=== PATIENT | female | born 1985 | race Two or more races ===

== ENCOUNTER → 2021-11-21 09:10 | Outpatient (CLI) | payer OTHER, SELFPAY ==
[2021-11-21 10:06] LABS: Alanine Aminotransferase 13 U/L (12-78); Albumin Level 3.8 g/dl (3.5-5.0); Albumin/Globulin Ratio 1.4 (1.1-1.8); Alkaline Phosphatase 74 U/L (38-126); Aspartate Amino Transferase 25 U/L (14-36); Bilirubin,Total 0.3 mg/dl (0.2-1.3); Blood Urea Nitrogen 7 mg/dl (7-17); Calcium 8.8 mg/dl (8.4-10.2); Carbon Dioxide 26 mmol/L (22.0-30.0); Chloride 107 mmol/L (98-107); Estimated Glomerular Filt Rate 140 ml/min (>60); GFR (African American) 170 ML/MIN (>60); Globulin 2.7 g/dL (1.3-3.2); Glucose 97 mg/dl (74-100); HCG Qualitative, Serum Negative (Negative); Sodium 138 mmol/L (136-145); Total Protein,Serum 6.5 g/dl (6.3-8.2)
[2021-11-21 10:12] LABS: Basophils % 0.6 % (0.1-2.0); Eosinophils # 0.1 K/mm3 (0.0-0.4); Eosinophils % 0.9 % (0.1-12.0); Hematocrit 43.8 % (37.0-47.0); Lymphocytes # 2.1 K/mm3 (0.7-4.5); Lymphocytes % 43.2 % (10-50); Mean Corpuscular HGB Conc 31.8 g/dL (31.8-35.4); Mean Platelet Volume 7.8 fl (7.4-10.4); Monocytes # 0.3 K/mm3 (0.1-1.0); Monocytes % 5.3 % (1.7-9.3); Neutrophils # 2.5 K/mm3 (1.8-7.8); Platelet Count 421 K/mm3 (142-424); Red Blood Count 4.82 M/mm3 (4.20-5.40); Red Cell Distribution Width 12.7 % (11.5-17.5)
[2021-11-21 10:36] LABS: Thyroid Stimulating Hormone 0.32 uIU/mL (0.465-4.68)
== END ==
PROVIDERS: PCP Pediatrics; Visit Provider Obstetrics & Gynecology
DX: Z01.812 Encounter for preprocedural laboratory examination (principal); Z20.822 Contact with and (suspected) exposure to COVID-19; Z30.09 Encounter for other general counseling and advice on contraception; N92.0 Excessive and frequent menstruation with regular cycle
CPT/HCPCS: 36415; 80053; 84443; 84703; 85025; C9803; U0003; U0005

== ENCOUNTER 2021-11-23 06:06 | Day surgery (SDC) | payer OTHER, SELFPAY ==
[2021-11-17 14:53] VITALS: BMI 23.3
[2021-11-23] VITALS (12 sets, daily range): BP systolic 106–151; BP diastolic 67–95; PULSE 65–77; RESP 16–18; TEMP 36.7–43; O2SAT 98–100
--- NOTE | 2021-11-23 09:11 | EXP.OP.NOTE ---
Date of procedure: 11/23/21 Pre-op Diagnosis:: 1. Menorrhagia 2. Complete family status, desires permanent sterilization 3. Hypothyroidism Post-op Diagnosis:: 1. Menorrhagia 2. Complete family status, desires permanent sterilization 3. Hypothyroidism 4. Stage 1 endometriosis of pelvic peritoneum Procedure performed:: 1. Laparoscopy, bilateral salpingectomy 2. Hysteroscopy, D&C, Novasure endometrial ablation Surgeon:: Aparna rByant DO Director Of Group Counseling Program(s):: N/a Anesthesia: GETA Estimated blood loss (mL): 5 Clinical Note:: Ms Esther Wynn is a 36 yo, P3013, with complaint of heavy, regular periods. Flow lasts about 6-7 days with 3-4 heavy days with passage of clots. She admits she has to wear two overnight pads to be covered. She reports changing the two pads about every 2 hours. She denies associated pain. She has history of abnormal pap smear in 2009 and subsequently had cryotherapy followed by normal pap smears. She is not using any contraception at this time. She is exercising abstinence but desires permanent sterilization. She is complete with childbearing. History of x 3 and an elective in 2010. She admits in April she had unprotected intercourse and took Plan B. She has history of hypothyroidism. Operative findings:: Upon laparoscopic exam, grossly normal appearing liver, stomach and bowel. Gallbladder and appendix not visualized. Grossly normal appearing retroverted uterus, bilateral fallopian tubes and bilateral ovaries. Endometriosis powder burn lesions noted in the posterior cul-de-sac. No intraabdominal adhesions. Upon bimanual exam, retroverted uterus noted. Upon hysteroscopic exam, bilateral tubal ostia easily visualized. Blood clots present within the cavity. No masses or lesions within the cavity. Operative note:: Risks, benefits and alternatives were discussed with the patient. Risks include but are not limited to bleeding, infection, damage to adjacent structures and VTE. Patient voiced understanding and agreed to proceed with surgery. She was wheeled back to the operating room and placed under general anesthesia without difficulty. She was placed in the dorsal lithotomy position and prepped and draped in normal sterile fashion. A straight catheter was used to drain the bladder prior to the start of the procedure. A bimanual exam was performed. A weighted Auvard was placed in the vaginal vault. A single tooth tenaculum was placed on the anterior lip of the cervix. [place] manipulator was inserted into the cervical canal and attached to the tenaculum. Weighted Auvard was removed from the vagina. Attention was then drawn to the abdomen. A 2cm infraumbilical incision was made. Veress needle was tested and inserted intraabdominally without difficulty. Opening pressure of 5mm Hg. Abdomen was then insulflated to 15 mm Hg. Trocar was inserted through infraumbilical incision and laparoscope was inserted. Abdomen was viewed in its entirety. See findings above. Pictures were taken. Left lower quadrant was transilluminated. 5 mm incision was made and 5 mm disposable blunt trocar was inserted into the abdomen under direct laparoscopic visualization. Trocar was removed and sleeve was left in place. Right lower quadrant was transilluminated. A 2 cm incision was made and a 12 mm disposable trocar was inserted into the abdomen under direct laparoscopic visualization. Obturator was removed and sleeve was left in place. Fimbriated end of right fallopian tube was grasped. Harmonic was used to transect the right mesosalpinx and fallopian tube at uterine cornua, leaving right ovary in situ. Same procedure was carried out on the contralateral side. Bilateral fallopian tubes will be sent to pathology for review. Hemostasis was noted. Pelvis was irrigated with clear return of fluids. Pictures were taken. Left lower quadrant trocar was removed under direct laparoscopic visualization. Right lower quadrant trocar was removed under direct
--- NOTE | 2021-11-23 09:54 | PC.NURSE ---
0945-detailed report called to JUAN Noble 0945-pt transported to post op via stretcher w/angelia rails up and left in care of JUAN Noble with bed locked in lowest position, vss, pt stable
--- NOTE | 2021-11-24 08:10 | EXP.ANES.II ---
[facility] Anesthesia Record Part II Anesthesia Record Part II Discharge Time: 09:47 Destination: Surgical Day Care (OP Surgery) PACU nurse assessment reviewed?: Yes Patient Condition:: Good Anesthesia Complications:: None Swallowing reflex intact?: Yes Cyanosis?: No Blood Pressure: 115/80 Pulse Rate: 67 Temperature: 98.3 F Mental Status: Alert & Oriented Pain level:: 0 Nausea and/or vomitting:: None Intake, IV Amount: 0
[2021-11-24 08:11] VITALS: BP 115/80; PULSE 67; TEMP 36.8
--- NOTE | 2021-11-24 10:24 | P.PN_ITS ---
[facility] Medical History History of abnormal cervical Papanicolaou smear (~2009) Hypothyroidism Menorrhagia Request for sterilization Surgical History History of dilatation and curettage (~2010) History of elective Family History Other Family history of hypertension No significant family history Social History Smoking Status: Never smoker alcohol intake: never substance use type: denies use current occupational status: employed Travel in the last 8 weeks: None [facility] Anesthesia Checklist Patient Identification Patient Identification: Arm Band Structural Data Admitted From: Home Planned Operative Procedure/s: hysteroscopy d & C BSO Consent for Planned Operative Procedure(s) Verified: Yes Verified Documents: Surgical Consent and History and Physical NPO Status Verified Time NPO: 00:00 Additional verifications Anesthesia Reactions: No Hx Blood Transfusions: No Blood Transfusion Reaction: No Airway Assessment C-Spine Mobility Assessed: Yes TMJ Mobility Assessed: Yes Dentition: Good Dentition Neurological Assessment Level of Consciousness: Awake, Alert, Appropriate and Follows Commands Hx Seizures: No Numbness or tingling in extremities: No Anesthesia Plan Anesthesia Risk discussed: Yes ASA Class: I Anesthesia Type: General
--- NOTE | 2021-11-24 10:27 | P.PNANES_ITS ---
[facility] Anesthesia Record Part I Anesthesia Record I Intake, IV Amount: 1,000 Estimated blood loss (mL): 0 Urine output (mL): 20 Blood Pressure: 125/83 SaO2: 100 Pulse Rate: 73 Respiratory Rate: 16 Temperature: 98.3 F Patient is:: Drowsy
[2021-11-24 10:30] VITALS: BP 125/83; PULSE 73; RESP 16; TEMP 36.8; O2SAT 100
== END 2021-11-23 10:45 | disposition home or self-care (01) ==
PROVIDERS: PCP Pediatrics; Visit Provider Obstetrics & Gynecology
PROC: (CPT 58661; principal; 2021-11-23 07:30)
DX: N92.0 Excessive and frequent menstruation with regular cycle (principal); Z30.2 Encounter for sterilization; N80.3 Endometriosis of pelvic peritoneum; E03.9 Hypothyroidism, unspecified; Z79.899 Other long term (current) drug therapy
CPT/HCPCS: 58661; 58563; J2405

== ENCOUNTER → 2022-05-01 11:05 | Outpatient (CLI) | payer OTHER, SELFPAY ==
[2022-05-02 09:14] LABS: HIV Screen 4th Generation wRfx Non Reactive (Non Reactive)
[2022-05-02 12:19] LABS: Rapid Plasma Reagin Ab Titer Non Reactive (NonRea<1:1)
[2022-05-07 16:04] LABS: Hep A Ab, IgM NEGATIVE; Hepatitis B Core Antibody IgM NEGATIVE; Hepatitis B Surface Antigen NEGATIVE; Hepatitis C Antibody NON REACTIVE
== END ==
PROVIDERS: PCP Pediatrics; Visit Provider Obstetrics & Gynecology
DX: Z20.2 Contact with and (suspected) exposure to infections with a predominantly sexual mode of transmission (principal); N89.8 Other specified noninflammatory disorders of vagina; Z91.89 Other specified personal risk factors, not elsewhere classified
CPT/HCPCS: 36415; 80074; 86593; 86703; G0432

== ENCOUNTER 2023-03-22 14:26 | Outpatient (CLI) | payer OTHER, SELFPAY ==
[2023-03-22 14:51] LABS: Basophils # 0.1 K/mm3 (0-0.2); Basophils % 1.1 % (0.1-2.0); Eosinophils # 0.1 K/mm3 (0.0-0.4); Eosinophils % 1.3 % (0.1-12.0); Hematocrit 39.8 % (37.0-47.0); Hemoglobin 13.9 g/dL (12.2-16.2); Lymphocytes # 2.8 K/mm3 (0.7-4.5); Lymphocytes % 41.4 % (10-50); Mean Corpuscular HGB Conc 34.8 g/dL (31.8-35.4); Mean Corpuscular Hemoglobin 30.2 pg (27.0-31.2); Mean Corpuscular Volume 86.9 fl (81-99); Mean Platelet Volume 7.9 fl (7.4-10.4); Monocytes # 0.4 K/mm3 (0.1-1.0); Monocytes % 6.3 % (1.7-9.3); Neutrophils # 3.3 K/mm3 (1.8-7.8); Neutrophils % 49.8 % (37.0-80.0); Platelet Count 291 K/mm3 (142-424); Red Blood Count 4.58 M/mm3 (4.20-5.40); Red Cell Distribution Width 13.4 % (11.5-17.5); White Blood Count 6.7 K/mm3 (4.8-10.8)
[2023-03-22 15:23] LABS: Chloride 101 mmol/L (98-107); Potassium 4.1 mmoL/L (3.5-5.1); Sodium 137 mmol/L (136-145)
[2023-03-22 15:25] LABS: Blood Urea Nitrogen 7 mg/dl (7-17); Estimated Glomerular Filt Rate 94 ml/min (>60); GFR (African American) 114 ML/MIN (>60)
[2023-03-22 15:26] LABS: Alanine Aminotransferase 49 U/L (12-78); Albumin Level 4.1 g/dl (3.5-5.0); Albumin/Globulin Ratio 1.3 (1.1-1.8); Alkaline Phosphatase 93 U/L (38-126); Anion Gap 13.1 mEq/L (5-15); Aspartate Amino Transferase 36 U/L (14-36); Bilirubin,Total 0.6 mg/dl (0.2-1.3); Calcium 8.6 mg/dl (8.4-10.2); Carbon Dioxide 27 mmol/L (22.0-30.0); Globulin 3.1 g/dL (1.3-3.2); Glucose 93 mg/dl (74-100); Total Protein,Serum 7.2 g/dl (6.3-8.2)
[2023-03-22 15:43] LABS: HCG,Quantitative < 2 mIU/ml (0-5.42)
== END 2023-03-22 23:59 ==
LOC: LAB 14:27
PROVIDERS: PCP Pediatrics; Visit Provider Obstetrics & Gynecology
DX: Z01.812 Encounter for preprocedural laboratory examination (principal); N93.9 Abnormal uterine and vaginal bleeding, unspecified; R10.2 Pelvic and perineal pain; Z80.49 Family history of malignant neoplasm of other genital organs
CPT/HCPCS: 36415; 80053; 84702; 85025

== ENCOUNTER 2023-03-28 06:55 | Observation (INO) | payer OTHER, SELFPAY ==
--- NOTE | 2023-03-26 14:44 | SUR.PREOP ---
Clarified with Dr. Jackson's office staff Pippa who spoke with directly, that consent is correct for Total Laparoscopic hysterectomy with bilateral Oopherectomy, possible total abdominal hysterectomy, possible cystoscopy is correct procedure on consent.
[2023-03-27 13:11] VITALS: BMI 25.7
[2023-03-28] VITALS (24 sets, daily range): BP systolic 69–138; BP diastolic 58–86; PULSE 64–92; RESP 16–18; TEMP 36.4–43; O2SAT 92–100; BMI 25.8
[2023-03-28] MEDS: LACTATED RINGERS 1000ML 1,000 ML 25 ML IV (06:48)
[2023-03-28] MEDS: GABAPENTIN 300MG CAPSULE 600 MG PO (06:49)
[2023-03-28] MEDS: ACETAMINOPHEN 500MG TAB 1000 MG PO ×3 (06:49→21:58)
[2023-03-28] MEDS: CEFAZOLIN SODIUM 1 GM in 0.9 % SODIUM CHLORIDE 50 ML IV ×3 (07:23→21:57)
--- NOTE | 2023-03-28 07:28 | EXP.HP ---
History of Present Illness *Admission Date: 03/28/23 *Reason for visit:: Scheduled surgery *History of present illness: Ms Esther Wynn is a very pleasant 38 yo P3013 who presents to [facility] for scheduled surgery. She complains of abnormal uterine bleeding. History of tubal ligation and hysteroscopy, D&C, endometrial ablation 12/13/21. 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 In May 2022 periods were light, monthly. But she started having pain with intercourse that could last up to 1 week after intercourse and heavy bleeding after intercourse. She was scheduled for hysterectomy but her mother was diagnosed with endometrial cancer. 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 Then in October she started a new job and could not take off work. 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 She admits pain with intercourse is gone but she is still having a monthly period plus irregular spotting every month and bleeding after intercourse. She has a constant, daily ache and pressure in her pelvis which she tolerates but some days it is more painful than others. She requests definitive management with hysterectomy, bilateral oophorectomy. History of x 3. [facility] Disclaimer: The information contained in this section may have been updated after the patient was seen, as this information can be updated by other users. Medical History (Updated 03/28/23 @ 07:33 by Aprana Bryant DO) Abnormal uterine bleeding Chronic pelvic pain in female Dyspareunia in female Family history of malignant neoplasm of endometrium History of abnormal cervical Papanicolaou smear (~2009) Hypothyroidism Surgical History History of dilatation and curettage (~2010) History of elective History of endometrial ablation History of salpingectomy Family History (Updated 03/28/23 @ 06:44 by Ping Santiago RN) Other Diabetes Family history of hypertension Fibromyalgia Uterine cancer Social History (Updated 03/28/23 @ 06:45 by Ping Santiago RN) Smoking Status: Never smoker alcohol intake: never substance use type: denies use current occupational status: employed Travel in the last 8 weeks: None Review of Systems Review of Systems Review of systems:: pertinent systems reviewed and negative unless documented below *Genitourinary Genitourinary: Reports abnormal vaginal bleeding and Reports pelvic pain Meds Home Medications and Allergies Home Medications Medication Instructions Recorded Confirmed Type levothyroxine 75 mcg tablet 75 mcg PO DAILY 02/02/23 03/28/23 History ergocalciferol (vitamin D2) 1,250 1,250 mcg PO WEEKLY 03/22/23 03/28/23 History mcg (50,000 unit) capsule escitalopram oxalate 20 mg tablet 10 mg PO DAILY 03/22/23 03/28/23 History (Lexapro) New Prescriptions to Start Prescriptions: Allergies Allergy/AdvReac Type Severity Reaction Status Date / Time naproxen Allergy Mild Verified 03/28/23 06:26 Exam Data for Last 24 hours Vital signs and Labs for Last 24 Hours: Temp Pulse Resp BP Pulse Ox O2 Del Method 98.3 F 92 H 18 127/83 97 Room Air 03/28/23 06:29 03/28/23 06:29 03/28/23 06:29 03/28/23 06:29 03/28/23 06:29 03/28/23 06:29 I & O for Last 24 hours: Intake & Output 03/25/23 03/26/23 03/27/23 03/28/23 23:59 23:59 23:59 23:59 Weight 155 lb Constitutional Constitutional: no acute distress and cooperative *Routine HEENT Exam Head: Present normocephalic and atraumatic Eye: Absent conjunctivae pink ENT: Present mucous membranes moist *Routine Neck Exam Neck: Present full ROM *Routine Respiratory Exam Respiratory: Present CTA bilaterally and normal respiratory effort *Routine Cardiovascular Exam Cardiovascular: Present RRR *Routine Abdominal Exam Abdominal: Present soft; Absent tenderness or distended *Routine Rectal Exam Rectal:: deferred *Routine Genitalia Exam Genitalia:: deferred *Routine Extremities Exam Extremities: Present full ROM; Absent edema or calf tenderness *Routine Neurological Exam Neurological: Present alert, oriented X3 and moving all extremities Routine Psychiatric Exam Psychiatric: Present normal affect and cooperative Assessment and Plan *Assessment and plan (1) Chronic pelvic pain in female: Status: Acute Category: Medical Code(s): R10.2 - Pelvic and perineal pain; G89.29 - Other chronic pain (2) Abnormal uterine bleeding: Status: Acute Category: Medical Code(s): N93.9 - Abnormal uterine and vaginal bleeding, unspecified (3) Hypothyroidism: Status: Chronic Qualifiers: Hypothyroidism type: unspecified Qualified Code(s): E03.9 - Hypothyroidism, unspecified Category: Medical Code(s): E03.9 - Hypothyroidism, unspecified (4) History of endometrial ablation: Status: Acute Category: Surgical Code(s): Z98.890 - Other specified postprocedural states (5) History of salpingectomy: Status: Acute Category: Surgical Code(s): Z90.79 - Acquired absence of other genital organ(s) (6) Family history of malignant neoplasm of endometrium: Problem Comment: mother Status: Acute Category: Medical Code(s): Z80.49 - Family history of malignant neoplasm of other genital organs (7) Adjustment disorder with emotional disturbance: Status: Acute Category: Medical Code(s): F43.29 - Adjustment disorder with other symptoms Plan Admit to [facility] for scheduled surgery Reviewed risks, benefits, alternatives, expectations and possible complications of surgery. Risks include but are not limited to bleeding; infection; damage to adjacent structures (bowel, bladder, nerves, blood vessels, etc) (possibly requiring further intervention and/or longer hospital stay); VTE; risks with anesthesia; and risk of . All questions addressed and answered. Patient voiced understanding of risks and possible complications. Patient desires to proceed with surgery. Consent form signed. Proceed with scheduled TLH, bilateral oophorectomy, possible NAZARIO, possible cystoscopy
--- NOTE | 2023-03-28 07:42 | EXP.ANES.CKL ---
[facility] Disclaimer: The information contained in this section may have been updated after the patient was seen, as this information can be updated by other users. Medical History (Updated 03/28/23 @ 07:33 by Aparna Bryant DO) Abnormal uterine bleeding Chronic pelvic pain in female Dyspareunia in female Family history of malignant neoplasm of endometrium History of abnormal cervical Papanicolaou smear (~2009) Hypothyroidism Surgical History History of dilatation and curettage (~2010) History of elective History of endometrial ablation History of salpingectomy Family History (Updated 03/28/23 @ 06:44 by Ping Santiago RN) Other Diabetes Family history of hypertension Fibromyalgia Uterine cancer Social History (Updated 03/28/23 @ 06:45 by Ping Santiago RN) Smoking Status: Never smoker alcohol intake: never substance use type: denies use current occupational status: employed Travel in the last 8 weeks: None [facility] Anesthesia Checklist Patient Identification Patient Identification: Arm Band Structural Data Admitted From: Home Planned Operative Procedure/s: Total Laparoscopic Hysterectomy, Bilateral Oopherectomy Consent for Planned Operative Procedure(s) Verified: Yes Verified Documents: Surgical Consent and History and Physical NPO Status Verified Time NPO: 00:00 Additional verifications Anesthesia Reactions: No Hx Blood Transfusions: No Blood Transfusion Reaction: No Airway Assessment Mallampati Score:: Class II C-Spine Mobility Assessed: Yes TMJ Mobility Assessed: Yes Dentition: Good Dentition Neurological Assessment Level of Consciousness: Awake and Alert Anesthesia Plan Anesthesia Risk discussed: Yes Anesthesia Plan: Verified ASA Class: II Anesthesia Type: General
[2023-03-28] MEDS: BUPIVACAINE 0.5% 30ML VIAL 150 MG (08:02)
[2023-03-28] MEDS: 0.9 % SODIUM CHLORIDE 1000ML 1,000 ML IV (08:04)
--- NOTE | 2023-03-28 08:57 | HMH.PHAINT1 ---
Pharmacy Intervention Comments: MEDICATION RECONCILIATION COMPLETED ON PATIENT USING EXTERNAL FILL HISTORY FROM PHARMACY. -ROB MORALEZ, [place]
--- NOTE | 2023-03-28 09:11 | EXP.ANES.I ---
[facility] Anesthesia Record Part I Anesthesia Record I Intake, IV Amount: 1,000 Hydration: Adequate Estimated blood loss (mL): 100 Urine output (mL): 200 Blood Products used (#): none Blood Pressure: 123/75 SaO2: 92 Pulse Rate: 80 Airway Patency: Patent Respiratory Rate: 16 Temperature: 99.5 F Patient is:: Drowsy and Stable Stable to PACU at:: 09:10
--- NOTE | 2023-03-28 09:23 | EXP.OP.NOTE ---
Date of procedure: 03/28/23 Pre-op Diagnosis:: 1. Chronic pelvic pain 2. Abnormal uterine bleeding 3. History of bilateral salpingectomy 4. History of endometrial ablation 5. Family history of endometrial cancer 6. Hypothyroidism Post-op Diagnosis:: 1. Chronic pelvic pain 2. Abnormal uterine bleeding 3. History of bilateral salpingectomy 4. History of endometrial ablation 5. Family history of endometrial cancer 6. Hypothyroidism 7. Intraabdominal adhesion Procedure performed:: 1. Lysis of adhesion between omentum and anterior abdominal wall near umbilicus 2. Total Laparoscopic Hysterectomy, bilateral oophorectomy Surgeon:: Aparna Bryant DO Gear Cutting Machine Set Up Operator(s):: Arun Poole MD CANAL DRIVER:: Maurisio Delgado Anesthesia: GETA Estimated blood loss (mL): 100 Clinical Note:: Ms Esther Wynn is a very pleasant 38 yo P3013 who presents to [facility] for scheduled surgery. She complains of abnormal uterine bleeding. History of tubal ligation and hysteroscopy, D&C, endometrial ablation 12/13/21. 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 In May 2022 periods were light, monthly. But she started having pain with intercourse that could last up to 1 week after intercourse and heavy bleeding after intercourse. She was scheduled for hysterectomy but her mother was diagnosed with endometrial cancer. 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 Then in October she started a new job and could not take off work. 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 She admits pain with intercourse is gone but she is still having a monthly period plus irregular spotting every month and bleeding after intercourse. She has a constant, daily ache and pressure in her pelvis which she tolerates but some days it is more painful than others. She requests definitive management with hysterectomy, bilateral oophorectomy. History of x 3. Operative findings:: 1. On bimanual exam, uterus normal size and shape, midposition. No adnexal masses palpated 2. On laparoscopic exam, small adjesion between omentum and anterior abdominal wall near umbilicus. Grossly normal appearing liver, gallbladder, stomach, bowel and omentum. Grossly normal appearing uterus and bilateral ovaries. No masses or lesions. Operative note:: Discussed risks, benefits, alternatives, expectations and possible complications of surgery. All questions addressed and answered. Patient wished to proceed with surgery. Patient was wheeled back to the operating room and placed under general anesthesia without difficulty. She was placed in the dorsal lithotomy position. She was prepped and draped in normal sterile fashion. Beginning at the vagina, a talley catheter was inserted into the bladder and draining clear urine prior to the start of the procedure. Weighted Auvuard was placed in the vaginal vault. Anterior lip of the cervix was grasped with single tooth tenaculum. Uterus sounded to 8. Contreras dilators were used to dilate the cervix. Advincula uterine manipulator was inserted into the cervix with the colpotomy cup covering the cervix. Single tooth tenaculum was removed prior to complete placement of colpotomy cup over cervix. Uterine balloon was filled with 10cc of air. Vaginal balloon was filled with 60 cc of air. Weighted Auvard was removed. Attention was then turned to the abdomen. Skin just below the umbilicus was injected with 0.5% marcaine. A 1.5 cm infraumbilical incision was made. Veress needle was tested and inserted intrabdominally. Opening pressure was 4 mm Hg. The peritoneal cavity was insulflated to 15 mm Hg. Laparoscope within 11 mm blunt trocar was inserted intrabdominally under direct visualization. Obturator and scope were removed. Laparoscope was inserted into the trocar sleeve. Abdomen and pelvis was viewed in its entirety. Bilateral ureters were identified. Examination of the peritoneal cavity revealed no signs of injury from entry and normal anatomic structures. See findings above. Pictures were taken. Bowel was swept cephalad with blunt probe. LLQ port site was transilluminated and injected with 0.5% marcaine. A 1.5 cm incision was made and 11 mm trocar was inserted intraabdominally under direct laparoscopic visualization. Obturator was removed and sleeve was left in place. Same procedure was performed in RLQ. Left ovary was grasped. Ligasure Hook was used to clamp, cauterize and transect the left IP ligament. Left round ligament was clamped, cauterized and transected with Ligassure Hook. Transection was carried through the Broad ligament. Same procedure was carried out on the contralateral side including transecting the right IP ligament then the Round ligament. Care was taken to slowly separate the bladder off of the lower uterine segment with sharp and blunt dissection. Once the bladder was appropriately dissected off of the lower uterine segment. Bilateral uterine arteries were clamped, cauterized and transected using the Ligasure. Transection was carried through the cardinal ligament bilaterally. Hemostasis was noted. At the level of the colpotomy cup, the vaginal vault was incised circumferentially with the Ligasure monopolar hook. The uterus and cervix was pulled into the vagina and left in the vagina to hold pneumoperitoneum. The vaginal vault was closed with the Endostitch V-Lock barbed stitch. Pelvis was irrigated. Intraabdominal pressure was decreased to 5 mm Hg. Hemostasis was noted. Surgicel powderwas applied over bilateral pedicles and closed vaginal vault. RLQ and LLQ trocars were removed under direct laparoscopic visualization. Pneumoperitoneum was released into the atmosphere. Infraumbilical trocar was removed under direct laparoscopic visualization to ensure no herniation of bowel or omentum. Skin incisions were reapproximated with 3-0 Vicryl. Dermabond was applied over closed skin incisions. Attention was turned to the vagina. Specimen was removed from the vagina and handed off of the sterile field. Catheter was removed from the bladder. Patient was awakened from anesthesia and taken to recovery in stable condition. Condition: stable Disposition: floor Specimens:: 1. Uterus and cervix 2. Bilateral ovaries Complications:: None
[2023-03-28] MEDS: ESTRADIOL VALERATE 20 MG/ML VIAL 30 MG IM (09:34)
[2023-03-28] MEDS: MORPHINE 2MG/ML SYRINGE 2 MG IV (09:42)
[2023-03-28] MEDS: LACTATED RINGERS 1000ML 1,000 ML 125 ML IV (10:03)
--- NOTE | 2023-03-28 11:20 | EXP.ANES.II ---
[facility] Anesthesia Record Part II Anesthesia Record Part II Discharge Time: 09:50 Destination: Obstetric PACU nurse assessment reviewed?: Yes Patient Condition:: Good Anesthesia Complications:: None Swallowing reflex intact?: Yes Airway Patency: Patent Cyanosis?: No Blood Pressure: 132/78 SaO2: 98 Respiratory Rate: 16 Pulse Rate: 86 Temperature: 98 F Mental Status: Alert & Oriented Pain level:: 2 Nausea and/or vomitting:: None Intake, IV Amount: 0 Hydration: Adequate
[2023-03-28] MEDS: HYDROMORPHONE 2MG/ML SYRINGE 1 MG IV (12:10)
[2023-03-28] MEDS: KETOROLAC 30MG/ML VIAL 30 MG IV ×2 (15:48→20:37)
--- NOTE | 2023-03-28 17:21 | PC.NURSE ---
SHIFT SUMMERY: NO ACUTE CHANGES SINCE PT ARRIVE TO THE DEPARTMENT. PT HAS C/O MILD CRAMPING PAIN THIS SHIFT. LUNGS REMAIN CLEAR BILATERALLY. BOWEL SOUNDS ARE ACTIVE. PT HAS AMBULATED TO THE BATHROOM AND WAS ABLE TO VOID POST ROTHMAN REMOVAL. LAP SITES ARE C/D/I. SMALL AMOUNT OF VAGINAL BLEEDING. VSS.
--- NOTE | 2023-03-28 19:13 | PC.NURSE ---
Report received from Bossman Davenport RN and Anthony Jefferson RN.
--- NOTE | 2023-03-28 20:00 | PC.NURSE ---
1930 IV fluids d/c. IV status is saline locked. Pt up to use restroom. SCDs removed due to patient ambulating throughout day following surgery per shift report. Pt states she needs no help to go to the restroom or to move about room.
[2023-03-28] MEDS: POLYETHYLENE GLYCOL 3350 17 GM PACKET PO (20:37)
[2023-03-29 00:09] VITALS: BP 106/63; PULSE 65; RESP 16; TEMP 36.7; O2SAT 97
--- NOTE | 2023-03-29 01:04 | PC.NURSE ---
Pt sleeping at this time. Equal bilateral rise and fall of chest with respirations. Family remains at bedside.
[2023-03-29] MEDS: KETOROLAC 30MG/ML VIAL 30 MG IV (03:38)
[2023-03-29] MEDS: ACETAMINOPHEN 500MG TAB 1000 MG PO ×2 (03:38→09:01)
[2023-03-29 03:45] VITALS: BP 101/61; PULSE 68; RESP 16; TEMP 36.6; O2SAT 97
--- NOTE | 2023-03-29 03:46 | PC.NURSE ---
Reassessment completed. Clear lung sounds bilaterally, bowel sounds present in all 4 quadrants. Incision sites are C/D/I. IV site is unremarkable and flushed prior to administration of IV Toradol. Patient is resting but arouses easily when staff comes in room. States she has minimal pain that is mostly present when she is passing gas and is intermittent. Has been able to sleep and get some rest. Scheduled pain medication given. Pt states she has no needs or concerns at this time.
[2023-03-29 05:44] LABS: Alanine Aminotransferase 23 U/L (12-78); Albumin Level 3.1 g/dl (3.5-5.0); Albumin/Globulin Ratio 1.2 (1.1-1.8); Alkaline Phosphatase 67 U/L (38-126); Aspartate Amino Transferase 23 U/L (14-36); Bilirubin,Total 0.5 mg/dl (0.2-1.3); Blood Urea Nitrogen 7 mg/dl (7-17); Calcium 8.1 mg/dl (8.4-10.2); Carbon Dioxide 24 mmol/L (22.0-30.0); Chloride 106 mmol/L (98-107); Creatinine Clearance Estimated 142 mL/min (50-200); Estimated Glomerular Filt Rate 112 ml/min (>60); GFR (African American) 136 ML/MIN (>60); Globulin 2.6 g/dL (1.3-3.2); Glucose 96 mg/dl (74-100); Sodium 133 mmol/L (136-145); Total Protein,Serum 5.7 g/dl (6.3-8.2)
--- NOTE | 2023-03-29 06:34 | PC.NURSE ---
Pt sleeping with family at bedside. Equal and unlabored rise and fall of chest with respirations. No needs noted.
[2023-03-29 08:00] VITALS: BP 106/69; PULSE 72; RESP 18; TEMP 36.8; O2SAT 100
[2023-03-29 08:02] LABS: Basophils # 0.1 K/mm3 (0-0.2); Basophils % 0.7 % (0.1-2.0); Eosinophils % 0.3 % (0.1-12.0); Hematocrit 34.4 % (37.0-47.0); Hemoglobin 11.6 g/dL (12.2-16.2); Lymphocytes % 33.6 % (10-50); Mean Corpuscular HGB Conc 33.8 g/dL (31.8-35.4); Mean Corpuscular Hemoglobin 29.7 pg (27.0-31.2); Mean Corpuscular Volume 87.8 fl (81-99); Mean Platelet Volume 7.8 fl (7.4-10.4); Monocytes # 0.5 K/mm3 (0.1-1.0); Monocytes % 5.6 % (1.7-9.3); Neutrophils # 5.3 K/mm3 (1.8-7.8); Neutrophils % 59.7 % (37.0-80.0); Platelet Count 297 K/mm3 (142-424); Red Blood Count 3.92 M/mm3 (4.20-5.40); Red Cell Distribution Width 13.4 % (11.5-17.5); White Blood Count 8.8 K/mm3 (4.8-10.8)
--- NOTE | 2023-03-29 08:25 | EXP.DC.SUM ---
General Admission date:: 03/28/23 Discharge date: 03/29/23 HPI HPI HPI: POD # 1 s/p TLH, bilateral oophorectomy Feeling well this morning. Pain controlled. Light vaginal spotting with wiping. Voiding without difficulty and passing flatus. Tolerating regular diet. Denies fever/chills, chest pain and shortness of breath. No lightheadedness/dizziness. Ambulating well ad gasper. Hospital Course Hospital Course Hospital Course: Ms Esther Wynn is a very pleasant 38 yo [id number] who presents to [facility] for scheduled surgery. She complains of abnormal uterine bleeding. History of tubal ligation and hysteroscopy, D&C, endometrial ablation 12/13/21. 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 In May 2022 periods were light, monthly. But she started having pain with intercourse that could last up to 1 week after intercourse and heavy bleeding after intercourse. She was scheduled for hysterectomy but her mother was diagnosed with endometrial cancer. 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 Then in October she started a new job and could not take off work. She is following with an rural carrier associate at and her thyroid studies are good. She admits pain with intercourse is gone but she is still having a monthly period plus irregular spotting every month and bleeding after intercourse. She has a constant, daily ache and pressure in her pelvis which she tolerates but some days it is more painful than others. She requests definitive management with hysterectomy, bilateral oophorectomy. History of x 3. She underwent total laparoscopic hysterectomy with bilateral oophorectomy on 03/28/23. She did well postoperatively. Pain controlled. Light vaginal spotting with wiping. Voiding without difficulty and passing flatus. Tolerating regular diet. Denies fever/chills, chest pain and shortness of breath. No lightheadedness/dizziness. Vital signs stable, afebrile. Heart regular rate and rhythm. Lungs clear to auscultation. Abdomen soft, appropriate tenderness to palpation, BS normal. Ambulating well ad gasper. Normal hospital course. She was discharged home on POD # 1 with instructions to follow-up in the office in 2 weeks or sooner if needed. Exam Data for Last 24 hours Vital signs and Labs for Last 24 Hours: Temp Pulse Resp BP Pulse Ox O2 Del Method O2 Flow Rate 97.9 F 68 16 101/61 L 97 Room Air 4 03/29/23 03:45 03/29/23 03:45 03/29/23 03:45 03/29/23 03:45 03/29/23 03:45 03/29/23 06:30 03/28/23 09:30 Laboratory Results - last 24 hr 03/29/23 05:15: Sodium 133 L, Potassium 4.0, Chloride 106, Carbon Dioxide 24, Anion Gap 7.0, BUN 7, Creatinine 0.60, Estimated Creat Clear 142, Estimated GFR 112, Est GFR ( Amer) 136, Glucose 96, Calcium 8.1 L, Total Bilirubin 0.5, AST 23, ALT 23, Alkaline Phosphatase 67, Total Protein 5.7 L, Albumin 3.1 L, Globulin 2.6, Albumin/Globulin Ratio 1.2 03/29/23 06:50: WBC 8.8, RBC 3.92 L, Hgb 11.6 L, Hct 34.4 L, MCV 87.8, MCH 29.7, MCHC 33.8, RDW 13.4, Plt Count 297, MPV 7.8, Neut % (Auto) 59.7, Lymph % (Auto) 33.6, [place] % (Auto) 5.6, Eos % (Auto) 0.3, Baso % (Auto) 0.7, Neut # (Auto) 5.3, Lymph # (Auto) 3.0, [place] # (Auto) 0.5, Eos # (Auto) 0.0, Baso # (Auto) 0.1 I & O for Last 24 hours: Intake & Output 03/26/23 03/27/23 03/28/23 03/29/23 23:59 23:59 23:59 23:59 Intake Total 1000 / 1000 Output Total 550 / 550 Balance 450 / 450 Weight 155 lb 155 lb 0.006 oz Constitutional Constitutional: no acute distress and cooperative *Routine HEENT Exam Head: Present normocephalic and atraumatic Eye: Absent conjunctivae pink ENT: Present mucous membranes moist *Routine Neck Exam Neck: Present full ROM *Routine Respiratory Exam Respiratory: Present CTA bilaterally and normal respiratory effort *Routine Cardiovascular Exam Cardiovascular: Present RRR *Routine Abdominal Exam Abdominal: Present soft and normoactive bowel sounds; Absent tenderness, distended or guarding *Routine Rectal Exam Patient deferred: visual exam *Routine Exam Patient deferred: external exam *Routine Extremities Exam Extremities: Present full ROM; Absent edema or calf tenderness *Routine Neurological Exam Neurological: Present alert, oriented X3 and moving all extremities Routine Psychiatric Exam Psychiatric: Present normal affect and cooperative Results Data Completed and Pending Labs on day of discharge: Labs from last 24 hours 03/29/23 03/29/23 06:50 05:15 WBC 8.8 RBC 3.92 L Hgb 11.6 L Hct 34.4 L MCV 87.8 MCH 29.7 MCHC 33.8 RDW 13.4 Plt Count 297 MPV 7.8 Neut % (Auto) 59.7 Lymph % (Auto) 33.6 [place] % (Auto) 5.6 Eos % (Auto) 0.3 Baso % (Auto) 0.7 Neut # (Auto) 5.3 Lymph # (Auto) 3.0 [place] # (Auto) 0.5 Eos # (Auto) 0.0 Baso # (Auto) 0.1 Sodium 133 L Potassium 4.0 Chloride 106 Carbon Dioxide 24 Anion Gap 7.0 BUN 7 Creatinine 0.60 Estimated Creat Clear 142 Estimated GFR 112 Est GFR ( Amer) 136 Glucose 96 Calcium 8.1 L Total Bilirubin 0.5 AST 23 ALT 23 Alkaline Phosphatase 67 Total Protein 5.7 L Albumin 3.1 L Globulin 2.6 Albumin/Globulin Ratio 1.2 DS: Diagnosis Discharge Diagnosis (1) Chronic pelvic pain in female: Status: Acute Code(s): R10.2 - Pelvic and perineal pain; G89.29 - Other chronic pain (2) Abnormal uterine bleeding: Status: Acute Code(s): N93.9 - Abnormal uterine and vaginal bleeding, unspecified (3) Hypothyroidism: Status: Chronic Code(s): E03.9 - Hypothyroidism, unspecified Qualifiers: Hypothyroidism type: unspecified Qualified Code(s): E03.9 - Hypothyroidism, unspecified (4) History of endometrial ablation: Status: Acute Code(s): Z98.890 - Other specified postprocedural states (5) History of salpingectomy: Status: Acute Code(s): Z90.79 - Acquired absence of other genital organ(s) (6) Family history of malignant neoplasm of endometrium: Status: Acute Code(s): Z80.49 - Family history of malignant neoplasm of other genital organs Problem details: mother (7) Adjustment disorder with emotional disturbance: Status: Acute Code(s): F43.29 - Adjustment disorder with other symptoms (8) Acute blood loss anemia: Status: Acute Code(s): D62 - Acute posthemorrhagic anemia Meds Home Medications and Allergies Home Medications Medication Instructions Recorded Confirmed Type levothyroxine 75 mcg tablet 75 mcg PO DAILY Thyroid 02/02/23 03/28/23 History ergocalciferol (vitamin D2) 1,250 1,250 mcg PO WEEKLY Supplement 03/22/23 03/28/23 History mcg (50,000 unit) capsule escitalopram oxalate 20 mg tablet 20 mg PO DAILY Mood 03/22/23 03/28/23 History (Lexapro) ibuprofen 800 mg tablet 800 mg PO Q8H PRN pain #20 tabs 03/29/23 Rx oxycodone 5 mg tablet 5 mg PO Q4HP PRN Moderate Pain 03/29/23 Rx (4-6) #20 tabs polyethylene glycol 3350 17 gram 17 g PO BID PRN constipation #14 ea 03/29/23 Rx oral powder packet (Miralax) New Prescriptions to Start Prescriptions: Aparna Lozada oxycodone Aparna Bryant polyethylene glycol 3350 [Miralax] Aparna Bryant Allergies Allergy/AdvReac Type Severity Reaction Status Date / Time naproxen Allergy Mild Verified 03/28/23 06:26 Discharge Plan Disposition Patient Disposition: Home, Self-Care Condition: Good Follow up Plan Follow up with: Aparna Bryant DO [Staff Physician] - 2 weeks Prescriptions/Medication Reconciliation: New polyethylene glycol 3350 [Miralax] 17 gram Powder In Packet 17 g PO BID PRN (Reason: constipation) Qty: 14 0RF oxycodone 5 mg Tablet 5 mg PO Q4HP PRN (Reason: Moderate Pain (4-6)) Qty: 20 0RF ibuprofen 800 mg tablet 800 mg PO Q8H PRN (Reason: pain) Qty: 20 0RF Continued levothyroxine 75 mcg tablet 75 mcg PO DAILY escitalopram oxalate [Lexapro] 20 mg tablet 20 mg PO DAILY ergocalciferol (vitamin D2) 1,250 mcg (50,000 unit) capsule 1,250 mcg PO WEEKLY Patient Comments: TAKE 1 CAPSULE BY MOUTH EVERY WEEK FOR 12 WEEKS Problem Reconciliation Problems Reviewed?: Yes Patient Discharge Instructions ACTIVITY: Limited activity and No heavy lifting DIET: continue same diet and regular diet Additional Instructions: Discharge instructions following hysterectomy: 1. Take 800 mg Ibuprofen every 8 hours, Tylenol 1000 mg every 6 hours and Oxy 5 mg every 4 hours for the next two days. Then take medication as needed for pain. 2. Take Miralax twice a day for the next 3 days then take as needed to keep regular bowel movements. Avoid constipation 3. Nothing in the vagina for 6 weeks - no intercourse, douching or tampons. No tub baths/hot tubs or swimming pools 4. No lifting anything heavier than 5 pounds for 6 weeks 5. Reasons to go to the ED or call On-Call doctor - fever (greater than 100.4) - chest pain or shortness of breath - lower leg/calf swelling, redness or pain. This could be a sign of a blood clot - heavy vaginal bleeding - vaginal discharge (malodorous and/or purulent) Aparna Bryant DO [facility] [phone] Providers Primary Care Provider: Olivier Fowler Admit Provider: Aparna Bryant Attending Provider: Aparna Bryant
[2023-03-29] MEDS: IBUPROFEN 400 MG TABLET 800 MG PO (09:00)
[2023-03-29] MEDS: POLYETHYLENE GLYCOL 3350 17 GM PACKET PO (09:01)
[2023-03-29] MEDS: CITALOPRAM 40MG TABLET 40 MG PO (09:01)
[2023-03-29] MEDS: LEVOTHYROXINE 75MCG (0.075MG) TAB 75 MCG PO (09:01)
[2023-03-29] MEDS: OXYCODONE 5MG IMMEDIATE RELEASE TABLET 5 MG PO (09:15)
--- NOTE | 2023-03-29 10:20 | PC.NURSE ---
D/C teaching provided. Pt v/u
--- NOTE | 2023-03-29 10:59 | PC.NURSE ---
IV discontinued. Pt tolerated well
== END 2023-03-29 11:10 | disposition home or self-care (01) ==
LOC: OB 06:55
PROVIDERS: Admitting Provider Obstetrics & Gynecology; PCP Pediatrics; Visit Provider Obstetrics & Gynecology
PROC: (CPT 58570; principal; 2023-03-28 07:30)
DX: R10.2 Pelvic and perineal pain (principal); G89.29 Other chronic pain; E03.9 Hypothyroidism, unspecified; F43.29 Adjustment disorder with other symptoms; D62 Acute posthemorrhagic anemia; N93.9 Abnormal uterine and vaginal bleeding, unspecified
CPT/HCPCS: 58570; 36415; 80053; 85025; 96374; G0378; J2405

== ENCOUNTER 2024-08-12 10:52 | Outpatient (CLI) | payer OTHER, SELFPAY ==
--- NOTE | 2024-08-12 11:00 | XR_ITS ---
FINAL REPORT CLINICAL HISTORY: VERTEBROGENIC LBP COMPARISON: None FINDINGS: CERVICAL SPINE Three views of the cervical spine were obtained. There is no fracture present. There is no malalignment. Vertebrae are normal in height. No significant degenerative changes. IMPRESSION: No acute process. THORACIC SPINE Two views of the thoracic spine were obtained. There is no fracture present. There is no malalignment. Vertebrae are normal in height. No significant degenerative changes. IMPRESSION: No acute process. LUMBOSACRAL SPINE Three views of the lumbosacral spine were obtained. There is no fracture present. There is no malalignment. Vertebrae are normal in height. No significant degenerative changes. IMPRESSION: No acute process. Reviewed, Interpreted and Dictated by Zay Bowers MD Transcribed by Evelyne Hayes Authenticated and [facility]
== END 2024-08-12 23:59 | disposition home or self-care (01) ==
LOC: RAD 10:53
PROVIDERS: PCP Nurse Practitioner Family; Visit Provider Nurse Practitioner Family
DX: M54.51 Vertebrogenic low back pain (principal)
CPT/HCPCS: 72082

== ENCOUNTER 2025-03-02 08:03 | Outpatient (CLI) | payer OTHER, SELFPAY ==
--- OUTSIDE RECORDS SUMMARY | 2025-02-26 04:00 | XMS_ITS | Continuity of Care Document ---
Author Organization [facility] Address [address] [place] [address] Phone Care Team Providers Care Roller Stainer Name Role Phone Erasmo MSN, [employer], Duyen Unavailable Unavai lable Allergies, Adverse Reactions, Alerts Substance Reaction Status Criticality naproxen Itching Active No Information Medications Medication Instructions Dosage Effective Dates (start - stop) Status Comments VITAMIN D3 2,000UNIT CAPSULES TAKE 1 CAPSULE BY MOUTH DAILY - Active ESCITALOPRAM 20MG TABLETS TAKE 1 TABLET BY MOUTH EVERY DAY - Active Delestrogen 10 mg/mL intramuscular oil inject 1 milliliter by intramuscular route every 4 weeks 10 MG - Active levothyroxine 75 mcg tablet take 1 tablet by oral route every day sun-sat - Active Procedures Procedure Date SCREEN DEPRESSION PERFORMED ROUTINE VENIPUNCTURE URINALYSIS, AUTO, W/O SCOPE OFFICE/OUTPATIENT VISIT, EST Results Test Name Date and Time Measure Units Reference Range Abnormal Flag Status Comments Panel Description: Urinalysis, non-automated, w/ o scope Final Urinalysis, non-automat ed, w/o scope 10:02:05 Color: yellow. Clarity: clear. Glucose: negative. Bilirubin: negative. Ketones: negative. Specific [place]: 1.025. Blood: trace. pH: 6.0. Protein: negative. Urobilinogen: normal. Nitrite: negative. Leukocytes: negative. Final Advance Directives Directive Yes / No Effective Date File Name No Information Encounters Encounter Description Practice Location Reason(s) For Visit Diagnoses Date Provider OFFICE/OUTPA TIENT VISIT, EST [facility], [address] [place] [address], [facility], tel:[phone] [facility] routine check up (chief complaint)L abs (chief complaint)P rapare (chief complaint)D epression Screening (chief complaint) Low incomeEncounter for screening for depressionEncounter for screening for diseases of the blood and blood-forming organs and certain disorders involving the immune mechanismLower back painAnxietyMyalgiaPain in right hipContusion of right breast, subsequent encounterBody mass index [BMI] 24.0-24.9, adult 5 [address] [place], [place], [id number] , . tel:[phone] [facility], [address] [place] [address], [facility], tel:[phone] [facility] [place] No Information 5 [address] [place], [place], [id number] , . tel:[phone] [facility], [address] [place] [address], [facility], tel:[phone] [facility] f/u labs and xray (chief complaint) Body mass index [BMI] 23.0-23.9, adultHyperlipidemiaVerte brogenic low back pain 5 [address], [place], [id number] , [place]. tel:[phone] [facility], [address] [place] [address], [facility], tel:[phone] [facility] Back Pain (chief complaint)b ack cont. (chief complaint) PrediabetesVitamin B12 deficiencyVertebrogenic low back painCystitis, unspecified without hematuriaSpontaneous ecchymosesBody mass index [BMI] 23.0-23.9, adult 5 Zimm[address] D[address]en[address] [place], [place], [id number] , [place]. tel:[phone] [facility], [address] [place] [address], [facility], tel:[phone] [facility] [place] b12 injection (chief complaint) Vitamin B12 deficiency 5 [address] D[address], [place], [id number] , [place]. tel: [phone] [facility], [address] [place] [address], [facility], tel:[phone] [facility] [place] b12 injection (chief complaint) Vitamin B12 deficiency 5 [address] D[address] [place], [place], [id number] , . tel: [phone] [facility], [address] [place] [address], [facility], tel:[phone] [facility] [place] lab collection (chief complaint) Body mass index [BMI] 22.0-22.9, adultCystitis, unspecified without hematuriaPrediabetesVita min B12 deficiency 5 [address] Duyen[address] [place], [place], [id number] , . tel: [phone] [facility], [address] [place] [address], [facility], [place] tel:[phone] [facility] [place] No Information 4 [address], [place], [id number] , [place]. tel:[phone] [facility], [address] [place] [address], [facility], tel:[phone] [facility] [place] B12 INJECTION (chief complaint) Vitamin B12 deficiency 4 [address] Duyen[address] [place], [place], [id number] , [place]. tel:[phone] [facility], [address] [place] [address], [facility], [place] tel:[phone] [facility] [place] B12 INJECTION (chief complaint) Vitamin B12 deficiency 4 [address] [place], [place], [address] , [place]. tel:[phone] [facility], [address] [place] [address], [facility], [place] tel:[phone] [facility] [place] LOSS OF VOICE (chief complaint) Acute laryngitisEncounter for screening for COVID-19Other seasonal allergic rhinitisVitamin B12 deficiencyBody mass index [BMI] 25.0-25.9, adult 4 [address] [place], [place], [id number] , [place]. tel: [phone] [facility], [address] [place] [address], [facility], [place] tel:[phone] [facility] [place] b12 injection (chief complaint) Vitamin B12 deficiency 4 [address] [place], [place], [address] , [place]. tel: [phone] [facility], [address] [place] [address], [facility], [place] tel:[phone] [facility] [place] B12 INJECTION (chief complaint) Vitamin B12 deficiency 4 [address] [place], [place], [address] , [place]. tel: [phone] [facility], [address] [place] [address], [facility], [place] tel:[phone] [facility] [place] FOLLOW UP ON LABS (chief complaint) Vitamin B12 deficiencyVitamin D deficiencyHyperlipidemia PrediabetesBody mass index [BMI] 26.0-26.9, adult 4 [address] D[address] [place], [place], [address] , [place]. tel:[phone] [facility], [address] [place] [address], [facility], tel:[phone] [facility] [place] FASTING LABS (chief complaint)d epression screening (chief complaint)F EDMUNDO VACCINE (chief complaint) Encounter for screening for depressionVitamin B12 deficiencyEncounter for immunization 4 [address] Duyen[address] [place], [place], [id number] , [place]. tel: [phone] [facility], [address] [place] [address], [facility], tel:[phone] [facility] [place] BACK PAIN (chief complaint) Vertebrogenic low back pain 4 [address] [place], [place], [id number] , [place]. tel: [phone] [facility], [address] [place] [address], [facility], tel:[phone] [facility] [place] ER Followup (chief complaint) Cystitis, unspecified without hematuriaBody mass index [BMI] 25.0-25.9, adultExtreme poverty 4 Zimm[address] Duyen. [address] [place], [place], [id number] , [place]. tel: [phone] [facility], [address] [place] [address], [facility], [place] tel:[phone] [facility] [place] B12 (chief complaint) Vitamin B12 deficiency Fe 4 [address] [place], [place], [address] , [place]. tel:[phone] [facility], [address] [place] [address], [facility], tel:[phone] [facility] [place] B12 injection #5 of 6. (chief complaint) Vitamin B12 deficiency Feb-0 4 [address] [place], [place], [address] , . tel: [phone] [facility], [address] [place] [address], [facility], tel:[phone] [facility] [place] injection (chief complaint) Vitamin B12 deficiency 0 4 [address]en[address] [place], [place], [address] , . tel: [phone] [facility], [address] [place] [address], [facility], tel:[phone] [facility] f/u medications /anxiety (chief complaint) Vitamin B12 deficiencyBody mass index [BMI] 25.0-25.9, adultAnxiety 4 [address] Duyen[address] [place], [place], [address] , . tel: [phone] [facility], [address] [place] [address], [facility], tel:[phone] [facility] [place] B12 injection (chief complaint) Vitamin B12 deficiency 4 [address] [place], [place], [address] , [place]. tel: [phone] [address], [facility], tel:[phone] [facility] f/u labs (chief complaint) Body mass index [BMI] 25.0-25.9, adultVitamin B12 deficiencyVitamin D deficiencyAnxietyMyalgia Upper respiratory infection NOS 4 Erasmo Geller. [address] [place], [place], [address] , [place]. tel: [phone] [facility], [address] [place] [address], [address], tel:[phone] [facility] Pre Op Physical (chief complaint) Encounter for screening for depressionEncounter for screening examination for other mental health and behavioral disordersAnxietyMyalgiaP ainful respirationEncounter for screening for diseases of the blood and blood-forming organs and certain disorders involving the immune mechanismBody mass index [BMI] 26.0-26.9, adultSleep disorder, unspecified 3 Erasmo Geller[address] [place], [place], [id number] , [place]. tel: [phone] Family History Family Member Type Diagnosis Age At Onset Sister Problem Alive and well Sister Problem fibromyalgia, In sulin resistent, anxiety, depression Paternal grandmother Problem (finding) Daughter Problem Alive and well Maternal grandmother Problem Hypertension Maternal grandfather Problem (finding) Sister Problem fibromyalgia, Mother Problem fibromyalgia, total hysterec ho Son Problem Alive and well Father Problem Hypertension Paternal grandfather Problem (finding) Father Problem Alive and well Mother Problem Alive and well Daughter Problem Alive and well Sister Problem Hypertension Sister Problem Alive and well Immunizations Vaccine Date Status Comments Influenza virus vaccine, trivalent (IIV3), split virus, preservative free, 0.5 mL dosage, for intramuscular use administered Source: Jasmin rosen Immunization Record Influenza Quad Inj administered Source: [facility] Registry COVID-19 mRNA (PFR) administered Source: Other Registry COVID-19 mRNA (PFR) administered Source: Other Registry Payers Payer name Insurance type Covered republican ID Authoriza tion(s) Hch- Medicaid [employer] CI [id number] Hch- Medicaid [employer] are Wrap Pay [id number] Hch- Medicaid [employer] CI [id number] Hch- Medicaid [employer] are W[employer] Pay [id number] Social History Type Description Quantity Date Captured Comments Alcohol Use Details beer 1 beer socially Caffeine Use Details soda 24 oz per day Tobacco Use Status Current non-smoker Smoking Status Never smoker Non-Smoking Tobacco Use Details : No Details Available : No Details Available Sex Female Sexual Orientation Straight or heterosexual Gender Identity Female Vital Signs Date / Time: Height Weight BMI Pulse Rate Blood Pressure Temperature Respiratory Rate Body Surface Area Head Circumference Head Circ. Percentile Wt./Cruz. Percentile BMI percentile Pulse Ox Inhaled Ox 9:49 AM 65.00 in 66.678 kg (147.00 lbs) 24.4 6 kg/m eter (2) 86 /min 129/76 mm[Hg] 98.10 F 18 /min 99 % Chief Complaint And Reason For Visit From encounter dated '02/26/2025 09:00'. routine check up (chief complaint). Description: Edenilson is a 39 yo [place] female here todayfor a routine check up and continued pain in lower back as well as rt hip pain.UA- today in office had trace blood.STD screening-self swab performed. Last pap- after hysterectomy this year.denies dysuriadenies feeling down/depressed.Edenilson states she has had right breast pain and itching around the nipple for a few months now. No nipple inversion, nor has she palpated any lumps. She is worried about breast cancer- mother had uterine cancer. Edenilson does take estrogren injections monthly. Mansioes not smoke, nor has a family memebter w/ breast cancer. She would like to have a diagnostic US of rt breast to r/o cancer.Noemi has also requested to have std testing through our lab via [facility].She reports that she believes she has fibromyalgia, as her arms, and legs both hurt and worsewhen touched, dull aches all over back, rt hip, arms and neck.this past week she reports having 2 episodes of feeling hot and sweaty, and lightheaded. She does have hypothyroid ism, and TPO antibodies were elevated in July. She is followed by Endocrinology and will f/u with hem in a few weeks. Will get flu vaccine at her follow up appointment. Pt refused to get it today due to having several otherappointments today and didn't want to take a chance of feeling bad. Labs (chief complaint). Description: Pt is here today to have labs collected. 1x attempt in right ac with butterfly needle. Successfully collected 5 tubes, pt tolerated well, gauze and coban applied,pt instructed to remove in 5-10 minutes, pt voiced understanding. Pt is scheduled to rtc in 2 weeksto follow up on lab results. Prapare (chief complaint). Description: Prapare completed 02/26/25. -AW,CM Depression Screening (chief complaint). Description: Depression screening completed 02/26/25. Pt scored 0, provider aware. -AW,PATITO Plan Of Treatment Date Type Action Status Goal Lifestyle education regardin g diet completed Goal Lipid panel. Due on 026 due Goal Vitamin D. Due on due Goal Follow up Plan f or abnormal BMI (Less than 18.5, greater than 25). Due on due Goal HIV screen due Goal HPV. Due on due Goal HPV testing. Due on 027 due Goal PAP. Due on due Goal Pap/HPV testing. Due on due Goal Depression scree kalyani. Due on due Goal Hepatitis C Screening due Goal Vitamin B12. Due on 026 due Goal Unhealthy drug use screening due Goal Influenza vaccine. Due on due Goal TSH. Due on due Goal Tobacco Use Scre ening. Due on due Goal Obtain Height, W eight, and BMI. Due on due Goal Diabetes screening. Due on due Goal Drug Abuse Scree kalyani Test (DAST-10). Due on due Goal CBC. Due on due Goal Tobacco screening. Due on due Goal CMP. Due on due Goal Generalized Anxi ety Disorder - 7 (STEPHEN-7). Due on due Goal Lifestyle education regardin g diet completed Goal Generalized Anxi ety Disorder - 7 (STEPHEN-7). Due on due Goal Unhealthy drug use screening due Goal Drug Abuse Scree kalyani Test (DAST-10). Due on due Goal Vitamin D. Due on due Goal CMP. Due on due Goal HIV screen due Goal Pap/HPV testing. Due on due Goal HPV. Due on due Goal PAP. Due on due Goal Follow up Plan f or abnormal BMI (Less than 18.5, greater than 25). Due on due Goal Influenza vaccine. Due on Oc due Goal Tobacco screening. Due on due Goal Depression scree kalyani. Due on due Goal CBC. Due on due Goal HPV testing. Due on due Goal Tobacco Use Scre ening. Due on due Goal Vitamin B12. Due on due Goal TSH. Due on due Goal Obtain Height, W eight, and BMI. Due on due Goal Diabetes screening. Due on M due Goal Hepatitis C Screening due Goal Lipid panel. Due on due Goal Lifestyle education regardin g diet completed Goal Depression scree kalyani. Due on due Goal Drug Abuse Scree kalyani Test (DAST-10). Due on due Goal Tobacco Use Scre ening. Due on due Goal Lipid panel. Due on due Goal Vitamin D. Due on due Goal Hepatitis C Screening due Goal HIV screen due Goal Generalized Anxi ety Disorder - 7 (STEPHEN-7). Due on due Goal Unhealthy drug use screening due Goal CMP. Due on due Goal HPV testing. Due on due Goal HPV. Due on due Goal PAP. Due on due Goal Vitamin B12. Due on due Goal CBC. Due on due Goal Diabetes screening. Due on due Goal Pap/HPV testing. Due on due Goal Obtain Height, W eight, and BMI. Due on due Goal Influenza vaccine. Due on due Goal Follow up Plan f or abnormal BMI (Less than 18.5, greater than 25). Due on due Goal TSH. Due on due Goal Tobacco screening. Due on due Goal Hepatitis C Screening due Goal HPV testing. Due on 027 due Goal Vitamin D. Due on due Goal CBC. Due on due Goal CMP. Due on due Goal Depression scree kalyani. Due on due Goal Pap/HPV testing. Due on due Goal Influenza vaccine. Due on due Goal Diabetes screening. Due on due Goal TSH. Due on due Goal Vitamin B12. Due on 025 due Goal Follow up Plan f or abnormal BMI (Less than 18.5, greater than 25). Due on due Goal Obtain Height, W eight, and BMI. Due on due Goal PAP. Due on due Goal HPV. Due on due Goal Tobacco Use Scre ening. Due on due Goal Generalized Anxi ety Disorder - 7 (STEPHEN-7). Due on due Goal Drug Abuse Scree kaylani Test (DAST-10). Due on due Goal HIV screen due Goal Lipid panel. Due on 026 due Goal Unhealthy drug use screening due Goal Vitamin D. Due on due Goal Lipid panel. Due on 026 due Goal Influenza vaccine. Due on due Goal Generalized Anxi ety Disorder - 7 (STEPHEN-7). Due on due Goal CMP. Due on due Goal TSH. Due on due Goal HPV. Due on due Goal HPV testing. Due on due Goal Diabetes screening. Due on due Goal Drug Abuse Scree kalyani Test (DAST-10). Due on due Goal Pap/HPV testing. Due on due Goal Unhealthy drug use screening due Goal Tobacco Use Scre ening. Due on due Goal Obtain Height, W eight, and BMI. Due on due Goal Depression scree kalyani. Due on due Goal Vitamin B12. Due on due Goal PAP. Due on due Goal Follow up Plan f or abnormal BMI (Less than 18.5, greater than 25). Due on due Goal CBC. Due on due Goal HIV screen due Goal Hepatitis C Screening due Goal Lifestyle education regardin g diet completed Goal Depression scree kalyani. Due on due Goal Vitamin B12. Due on due Goal Hepatitis C Screening due Goal CMP. Due on due Goal PAP. Due on due Goal Lipid panel. Due on 026 due Goal Influenza vaccine. Due on due Goal Unhealthy drug use screening due Goal Pap/HPV testing. Due on due Goal Vitamin D. Due on due Goal Generalized Anxi ety Disorder - 7 (STEPHEN-7). Due on due Goal CBC. Due on due Goal HPV. Due on due Goal Follow up Plan f or abnormal BMI (Less than 18.5, greater than 25). Due on due Goal TSH. Due on due Goal Drug Abuse Scree kalyani Test (DAST-10). Due on due Goal Tobacco Use Scre ening. Due on due Goal HIV screen due Goal Obtain Height, W eight, and BMI. Due on due Goal Diabetes screening. Due on due Goal HPV testing. Due on due Goal Depression scree kalyani. Due on due Goal Diabetes screening. Due on due Goal Pap/HPV testing. Due on due Goal HIV screen due Goal CBC. Due on due Goal PAP. Due on due Goal Unhealthy drug use screening due Goal Obtain Height, W eight, and BMI. Due on due Goal Generalized Anxi ety Disorder - 7 (STEPHEN-7). Due on due Goal HPV testing. Due on 027 due Goal Vitamin B12. Due on 025 due Goal Tobacco Use Scre ening. Due on due Goal CMP. Due on due Goal HPV. Due on due Goal Drug Abuse Scree kalyani Test (DAST-10). Due on due Goal Lipid panel. Due on 026 due Goal TSH. Due on due Goal Follow up Plan f or abnormal BMI (Less than 18.5, greater than 25). Due on due Goal Hepatitis C Screening due Goal Vitamin D. Due on due Goal Influenza vaccine. Due on due Goal Vitamin B12. Due on due Goal Generalized Anxi ety Disorder - 7 (STEPHEN-7). Due on due Goal Pap/HPV testing. Due on due Goal Drug Abuse Scree kalyani Test (DAST-10). Due on due Goal Influenza vaccine. Due on due Goal HPV. Due on due Goal HIV screen due Goal Follow up Plan f or abnormal BMI (Less than 18.5, greater than 25). Due on due Goal CBC. Due on due Goal Unhealthy drug use screening due Goal HPV testing. Due on 027 due Goal Diabetes screening. Due on due Goal CMP. Due on due Goal Lipid panel. Due on 026 due Goal Depression scree kalyani. Due on due Goal Vitamin D. Due on due Goal TSH. Due on due Goal Hepatitis C Screening due Goal PAP. Due on due Goal Tobacco Use Scre ening. Due on due Goal Obtain Height, W eight, and BMI. Due on due Goal Lifestyle education regardin g diet completed Goal Hepatitis C Screening due Goal CBC. Due on due Goal Drug Abuse Scree kalyani Test (DAST-10). Due on due Goal Diabetes screening. Due on due Goal Obtain Height, W eight, and BMI. Due on due Goal Unhealthy drug use screening due Goal Vitamin B12. Due on due Goal HPV. Due on due Goal Depression scree kalyani. Due on due Goal Follow up Plan f or abnormal BMI (Less than 18.5, greater than 25). Due on due Goal Influenza vaccine. Due on due Goal Pap/HPV testing. Due on due Goal PAP. Due on due Goal CMP. Due on due Goal Tobacco Use Cess ation Counseling. Due on due Goal Generalized Anxi ety Disorder - 7 (STEPHEN-7). Due on due Goal TSH. Due on due Goal Tobacco Use Scre ening. Due on due Goal HIV screen due Goal Vitamin D. Due on due Goal HPV testing. Due on due Goal Lipid panel. Due on due Goal Hepatitis C Screening due Goal Follow up Plan f or abnormal BMI (Less than 18.5, greater than 25). Due on due Goal Diabetes screening. Due on due Goal Tobacco Use Cess ation Counseling. Due on due Goal Obtain Height, W eight, and BMI. Due on due Goal HPV testing. Due on due Goal TSH. Due on due Goal Depression scree kalyani. Due on due Goal Generalized Anxi ety Disorder - 7 (STEPHEN-7). Due on due Goal Pap/HPV testing. Due on due Goal Vitamin D. Due on due Goal HIV screen due Goal CBC. Due on due Goal Vitamin B12. Due on due Goal Tobacco Use Scre ening. Due on due Goal Unhealthy drug use screening due Goal HPV. Due on due Goal Influenza vaccine. Due on due Goal CMP. Due on due Goal Lipid panel. Due on due Goal Drug Abuse Scree kalyani Test (DAST-10). Due on due Goal PAP. Due on due Goal Vitamin D. Due on due Goal HIV screen due Goal Hepatitis C Screening due Goal Unhealthy drug use screening due Goal Follow up Plan f or abnormal BMI (Less than 18.5, greater than 25). Due on due Goal CMP. Due on due Goal Pap/HPV testing. Due on due Goal Diabetes screening. Due on due Goal Lipid panel. Due on due Goal Drug Abuse Scree kalyani Test (DAST-10). Due on due Goal Vitamin B12. Due on due Goal Obtain Height, W eight, and BMI. Due on due Goal Generalized Anxi ety Disorder - 7 (STEPHEN-7). Due on due Goal TSH. Due on due Goal CBC. Due on due Goal Depression scree kalyani. Due on due Goal HPV. Due on due Goal Tobacco Use Scre ening. Due on due Goal Influenza vaccine. Due on due Goal HPV testing. Due on 027 due Goal PAP. Due on due Goal Lifestyle education regardin g diet completed Goal Pap/HPV testing. Due on due Goal Depression scree kalyani. Due on due Goal CMP. Due on due Goal Obtain Height, W eight, and BMI. Due on due Goal Unhealthy drug use screening due Goal HPV. Due on due Goal Drug Abuse Scree kalyani Test (DAST-10). Due on due Goal Follow up Plan f or abnormal BMI (Less than 18.5, greater than 25). Due on due Goal Generalized Anxi ety Disorder - 7 (STEPHEN-7). Due on due Goal HIV screen due Goal Tobacco Use Cess ation Counseling. Due on due Goal Tobacco Use Scre ening. Due on due Goal TSH. Due on due Goal HPV testing. Due on due Goal Hepatitis C Screening due Goal Diabetes screening. Due on due Goal Vitamin B12. Due on 025 due Goal PAP. Due on due Goal Lipid panel. Due on 026 due Goal CBC. Due on due Goal Influenza vaccine. Due on due Goal Vitamin D. Due on due Goal Drug Abuse Scree kalyani Test (DAST-10). Due on due Goal Generalized Anxi ety Disorder - 7 (STEPHEN-7). Due on due Goal CBC. Due on due Goal Pap/HPV testing. Due on due Goal TSH. Due on due Goal Depression scree kalyani. Due on due Goal PAP. Due on due Goal Tobacco Use Cess ation Counseling. Due on due Goal Vitamin D. Due on due Goal HPV. Due on due Goal HPV testing. Due on 027 due Goal Diabetes screening. Due on due Goal Influenza vaccine. Due on due Goal HIV screen due Goal Follow up Plan f or abnormal BMI (Less than 18.5, greater than 25). Due on due Goal Unhealthy drug use screening due Goal Tobacco Use Scre ening. Due on due Goal Obtain Height, W eight, and BMI. Due on due Goal Vitamin B12. Due on 024 due Goal CMP. Due on due Goal Hepatitis C Screening due Goal Drug Abuse Scree kalyani Test (DAST-10). Due on due Goal Depression scree kalyani. Due on due Goal Vitamin D. Due on due Goal Follow up Plan f or abnormal BMI (Less than 18.5, greater than 25). Due on due Goal Influenza vaccine. Due on due Goal HPV. Due on due Goal Obtain Height, W eight, and BMI. Due on due Goal Hepatitis C Screening due Goal CBC. Due on due Goal PAP. Due on due Goal Generalized Anxi ety Disorder - 7 (STEPHEN-7). Due on due Goal CMP. Due on due Goal Pap/HPV testing. Due on due Goal TSH. Due on due Goal HIV screen due Goal Tobacco Use Scre ening. Due on due Goal Vitamin B12. Due on 024 due Goal HPV testing. Due on 027 due Goal Diabetes screening. Due on due Goal Unhealthy drug use screening due Goal Lifestyle education regardin g diet completed Goal Hepatitis C Screening due Goal CBC. Due on due Goal Depression scree kalyani. Due on due Goal Drug Abuse Scree kalyani Test (DAST-10). Due on due Goal Obtain Height, W eight, and BMI. Due on due Goal HIV screen due Goal Diabetes screening. Due on due Goal HPV. Due on due Goal Pap/HPV testing. Due on due Goal HPV testing. Due on due Goal Vitamin D. Due on due Goal Tobacco Use Cess ation Counseling. Due on due Goal TSH. Due on due Goal Follow up Plan f or abnormal BMI (Less than 18.5, greater than 25). Due on due Goal Unhealthy drug use screening due Goal Generalized Anxi ety Disorder - 7 (STEPHEN-7). Due on due Goal Influenza vaccine. Due on due Goal CMP. Due on due Goal PAP. Due on due Goal Vitamin B12. Due on 024 due Goal Tobacco Use Scre ening. Due on due Goal HPV testing. Due on due Goal Obtain Height, W eight, and BMI. Due on due Goal Generalized Anxi ety Disorder - 7 (STEPHEN-7). Due on due Goal CMP. Due on due Goal TSH. Due on due Goal HPV. Due on due Goal HIV screen due Goal Tobacco Use Cess ation Counseling. Due on due Goal Unhealthy drug use screening due Goal Hepatitis C Screening due Goal CBC. Due on due Goal Follow up Plan f or abnormal BMI (Less than 18.5, greater than 25). Due on due Goal Influenza vaccine. Due on due Goal Vitamin D. Due on due Goal Depression scree kalyani. Due on due Goal Vitamin B12. Due on 024 due Goal Tobacco Use Scre ening. Due on due Goal Diabetes screening. Due on due Goal Drug Abuse Scree kalyani Test (DAST-10). Due on due Goal PAP. Due on due Goal Pap/HPV testing. Due on due Goal Drug Abuse Scree kalyani Test (DAST-10). Due on due Goal Follow up Plan f or abnormal BMI (Less than 18.5, greater than 25). Due on due Goal Depression scree kalyani. Due on due Goal Tobacco Use Scre ening. Due on due Goal Vitamin D. Due on due Goal HPV testing. Due on 027 due Goal Diabetes screening. Due on due Goal Obtain Height, W eight, and BMI. Due on due Goal Pap/HPV testing. Due on due Goal CBC. Due on due Goal Vitamin B12. Due on 024 due Goal Unhealthy drug use screening due Goal Hepatitis C Screening due Goal CMP. Due on due Goal Influenza vaccine. Due on Oc due Goal Generalized Anxi ety Disorder - 7 (STEPHEN-7). Due on due Goal TSH. Due on due Goal Tobacco Use Cess ation Counseling. Due on due Goal HPV. Due on due Goal PAP. Due on due Goal HIV screen due Goal Obtain Height, W eight, and BMI. Due on due Goal Generalized Anxi ety Disorder - 7 (STEPHEN-7). Due on due Goal Influenza vaccine. Due on Oc due Goal CMP. Due on due Goal Drug Abuse Scree kalyani Test (DAST-10). Due on due Goal Tobacco Use Scre ening. Due on due Goal Unhealthy drug use screening due Goal Hepatitis C Screening due Goal HPV. Due on due Goal HIV screen due Goal HPV testing. Due on 027 due Goal Follow up Plan f or abnormal BMI (Less than 18.5, greater than 25). Due on due Goal CBC. Due on due Goal Pap/HPV testing. Due on due Goal TSH. Due on due Goal Diabetes screening. Due on due Goal Vitamin B12. Due on due Goal PAP. Due on due Goal Vitamin D. Due on due Goal Depression scree kalyani. Due on due Goal Lifestyle education regardin g diet completed Goal TSH. Due on due Goal Generalized Anxi ety Disorder - 7 (STEPHEN-7). Due on due Goal Hepatitis C Screening due Goal HIV screen due Goal Obtain Height, W eight, and BMI. Due on due Goal CMP. Due on due Goal Influenza vaccine. Due on due Goal Unhealthy drug use screening due Goal Tobacco Use Scre ening. Due on due Goal PAP. Due on due Goal HPV. Due on due Goal CBC. Due on due Goal Depression scree kalyani. Due on due Goal Drug Abuse Scree kalyani Test (DAST-10). Due on due Goal Vitamin D. Due on due Goal Vitamin B12. Due on due Goal Pap/HPV testing. Due on due Goal Diabetes screening. Due on due Goal Follow up Plan f or abnormal BMI (Less than 18.5, greater than 25). Due on due Goal HPV testing. Due on due Goal Tobacco Use Cess ation Counseling. Due on due Goal PAP. Due on due Goal TSH. Due on due Goal Vitamin D. Due on due Goal CMP. Due on due Goal Pap/HPV testing. Due on due Goal Generalized Anxi ety Disorder - 7 (STEPHEN-7). Due on due Goal Tobacco Use Scre ening. Due on due Goal HIV screen due Goal Follow up Plan f or abnormal BMI (Less than 18.5, greater than 25). Due on due Goal Hepatitis C Screening due Goal Depression scree kalyani. Due on due Goal Drug Abuse Scree kalyani Test (DAST-10). Due on due Goal CBC. Due on due Goal Diabetes screening. Due on D due Goal HPV testing. Due on due Goal Vitamin B12. Due on 024 due Goal HPV. Due on due Goal Obtain Height, W eight, and BMI. Due on due Goal Unhealthy drug use screening due Goal Influenza vaccine. Due on due Goal Lifestyle education regardin g diet completed Goal PAP. Due on due Goal TSH. Due on due Goal Vitamin D. Due on due Goal CMP. Due on due Goal Pap/HPV testing. Due on due Goal Generalized Anxi ety Disorder - 7 (STEPHEN-7). Due on due Goal Tobacco Use Scre ening. Due on due Goal HIV screen due Goal Follow up Plan f or abnormal BMI (Less than 18.5, greater than 25). Due on due Goal Hepatitis C Screening due Goal Depression scree kalyani. Due on due Goal Drug Abuse Scree kalyani Test (DAST-10). Due on due Goal CBC. Due on due Goal Diabetes screening. Due on due Goal HPV testing. Due on 027 due Goal Vitamin B12. Due on 024 due Goal HPV. Due on due Goal Obtain Height, W eight, and BMI. Due on due Goal Unhealthy drug use screening due Goal Influenza vaccine. Due on Oc due Goal Lifestyle education regardin g diet completed Referral Ordered: X-RAY EXAM HIP UNI 4/> VIEWS Right hip Appointment date/timeframe: 1 Week ordered Referral Ordered: DX MAMMO INCL CAD UNI R breast Appointment date/timeframe: 1 Week ordered Referral Ordered: X-RAY EXAM ENTIRE SPI 2/3 VW Bilateral spine Appointment date/timeframe: 08/12/2024 ordered Appointment Edenilson Wynn-F/U Lab R esults BOOKED Future Order: Lab Order ABO Grou ping and Rho(D) Typing ([id number]), Collected on: Ordered Future Order: Lab Order Acute He patitis ([id number]), Collected on: Ordered Future Order: Lab Order LINDSAY w/Re flex if Positive ([id number]), Collected on: Ordered Future Order: Lab Order Anemia P rofile B ([id number]), Collected on: Ordered Future Order: Lab Order Comp. Me tabolic Panel (14) ([id number]), Collected on: Ordered Future Order: Lab Order C-Reacti ve Protein, Quant ([id number]), Collected on: Ordered Future Order: Lab Order DHEA-Sul fate ([id number]), Collected on: Ordered Future Order: Lab Order Hemoglob in A1c ([id number]), Collected on: Ordered Future Order: Lab Order HIV 1/0/ 2 Ag/Ab with Reflex ([id number]), Collected on: Ordered Future Order: Lab Order HLA B 27 Disease Association ([id number]), Collected on: Ordered Future Order: Lab Order Insulin ([id number]), Collected on: Ordered Future Order: Lab Order Lipid Pa maine ([id number]), Collected on: Ordered Future Order: Lab Order Lyme, We saldana Blot, Serum ([id number]), Collected on: Ordered Future Order: Lab Order Methylma lonic Acid, Serum ([id number]), Collected on: Ordered Future Order: Lab Order Magnesiu m, Serum ([id number]), Collected on: Ordered Future Order: Lab Order NuSwab V G+, HSV ([id number]), Collected on: Ordered Future Order: Lab Order Progeste darío ([id number]), Collected on: Ordered Future Order: Lab Order PTH, Int act ([id number]), Collected on: Ordered Future Order: Lab Order Rheumato id Arthritis Factor ([id number]), Collected on: Ordered Future Order: Lab Order [facility] Spotted Fever Group Antibodies, IgG, IgM ([id number]), Collected on: Ordered Future Order: Lab Order Sediment ation Rate-Westergren ([id number]), Collected on: Ordered Future Order: Lab Order Thyroid Antibodies ([id number]), Collected on: Ordered Future Order: Lab Order TSH Rfx on Abnormal to Free T4 ([id number]), Collected on: Ordered Future Order: Lab Order Uric Aci d, Serum ([id number]), Collected on: Ordered Future Order: Lab Order Vitamin D, 25-Hydroxy ([id number]), Collected on: Ordered Future Order: Lab Order SARS-COV -2 COVID-19 AMP PRB ([id number]), Collected on: Ordered History Of Present Illness Encounter Date Complaint History Of Prese nt Illness Labs Pt is here today to have labs collected. 1x attempt in right ac with butterfly needle. Successfully collected 5 tubes, pt tolerated well, gauze and coban applied, pt instructed to remove in 5-10 minutes, pt voiced understanding. Pt is scheduled to rtc in 2 weeks to follow up on lab results. routine check up Edenilson is a [age] yo [place] female here today for a routine check up and continued pain in lower back as well as rt hip pain.UA- today in office had trace blood.STD screening-self swab performed. Last pap- after hysterectomy this year.denies dysuriadenies feeling down/depressed.Edenilson states she has had right breast pain and itching around the nipple for a few months now. No nipple inversion, nor has she palpated any lumps. She is worried about breast cancer- mother had uterine cancer. Edenilson does take estrogren injections monthly. She does not smoke, nor has a family memebter w/ breast cancer. She would like to have a diagnostic US of rt breast to r/o cancer.Noemi has also requested to have std testing through our lab via her blood.She reports that she believes she has fibromyalgia, as her arms, and legs both hurt and worse when touched, dull aches all over back, rt hip, arms and neck.this past week she reports having 2 episodes of feeling hot and sweaty, and lightheaded. She does have hypothyroid ism, and TPO antibodies were elevated in July. She is followed by Endocrinology and will f/u with hem in a few weeks. Will get flu vaccine at her follow up appointment. Pt refused to get it today due to having several other appointments today and didn't want to take a chance of feeling bad. Alina Fuller complete d 02/26/25. -PATITO LAKHANI Depression Screening Depression screening completed 02/26/25. Pt scored 0, provider aware. -PATITO LAKHANI f/u labs and xray Edenilson is he re today for f/u on labs and xrays.Overall labs stablecholesterol high, however was non-fasting labs.She went to the ER on 08/14/24 for left shoulder pain, [facility].She thought she was having a heart attackEKG NSR Vent rate 62again cervical xrays were completed: no acute findings, no degenerative change.Lt shoulder 3v : normal study.She would like an MRI- however I explained there is not an indication for this at this time.She states she does feel better, she was given a steroid shot at ER, and symptoms improved.Xrays of complete spine were completed as out patient- days before her ER visit.No acute findings in Cervical, Thoracic, or Lumbar spine.Edenilson also went to Dr. Magallanes for f/u on LLQ pain.Vaginal swab complete- results not yet availableReferred to GI Dr. Dean for evaluation of possible adhesion.RTC 2 weeks b12 injection Back Pain Onset: 2 months ago. The problem is worsening. It occurs persistently. Location of pain is upper back and lower back. Additional information: Pt states that she has a bruise on her upper back that she just discovered 3 days ago and she doesn't know how she got it. Her pain in her lower back has been present for the last 2 months but continues to slowly worsen. back cont. Edenilson states that her back pain is lower back pain, worse with bending, which she does a lot. She states it is more muscular, but her lower back hurts into her hips.She denies accident or injuryworried r/t her mother has lower back diseasewants everything checked.She has requested xrays, MRI.on her thorasic, left upper back she does have a discoloration, possible ecchymosis that began Sunday- no injurylabs collected todayPt was instructed to practice gentle stretching and ice application to lower back daily, ibuprofen for pain as needed, but not for fdc use. b12 injection Edenilson is here today to receive her monthly b12 injection. Administered into left deltoid. Pt tolerated well, bandaide applied. b12 injection Edenilson is hser e today for monthly b12 injection lab collection Here for fasting lab collectionstates has lower back pain, feels like UTI she previously hadDenies dysuria, hematuria, or vaginal dischargeUA oscar send cx B12 INJECTION EDENILSON IS HERE TODAY TO RECEIVE B12 INJECTION #6 OF 6. ADMINISTERED B12 INJECTION INTO LEFT DELTOID. PT TOLERATED WELL, BANDAID APPLIED. PT WILL NOW MOVE FROM WEEKLY INJECTIONS TO MONTHLY INJECTIONS. PT IS SCHEDULED TO RTC IN 1 MONTH. B12 INJECTION EDENILSON IS HERE TODAY TO RECEIVE B12 INJECTION #5 OF 6. ADMINISTERED INTO LEFT DELTOID. PT TOLERATED WELL, BAND AID APPLIED. PT IS SCHEDULED TO RTC IN 1 WEEK FOR B12 INJECTION #6 OF 6. LOSS OF VOICE Pt states that s he lost her voice yesterday. She denies fever, sore throat, or cough. She describes throat as itchy/tickle.Covid test is negative today in clinic. b12 injection # 3 of 6 B12 INJECTION Edenilson is here today for a b12 injection. She has started a 6 week series of b12 injections and this is her second b12 injection today. Administered today in left deltoid, pt tolerated well, band aid applied. Pt is scheduled to rtc in 1 week for injection #3 of 6. FOLLOW UP ON LABS Edenilson is he re today for f/u on labs:A1c 5.7- new prediabetesHLD Total 234LDL 145Trigs 151HDL 62TSH 4.24B12 222- restart 6 weeks series of injection- 1st todayVit D 21.4Diet modification and education provided to ptRTC 3 month for fasting labs RTC 1 week next b12 injectionflu vaccine current FLU VACCINE EDENILSON IS HERE THIS MORNING TO RECEIVE HER ANNUAL INFLUNZA VACCINE. ADMINISTERED AFLURIA 0.5 ML LOT# [id number], EXP 08.16.24, INTO LT DELTOID. PT TOLERATED WELL, BAND AID APPLIED. CONSENT SIGNED AND SCANNED INTO CHART. FASTING LABS EDENILSON IS HERE TODAY TO HAVE FASTING LABS COLLECTED. SUCCESSFULLY COLLECTED 4 TUBES. PT TOLERATED WELL. PT IS SCHEDULED TO RTC IN 2 WEEKS TO FOLLOW UP ON LABS. depression screening Depression screening completed on 12/11/2023. Patient scored 5, provider made aware.- PATITO LAKHANI BACK PAIN Onset: 7 months ago. Severity level is 8. The problem is worsening. It occurs persistently. Location of pain is left flank and left lower side of back.There is no radiation of pain. The client describes the pain as an ache, deep, discomforting, localized and sharp. Context: bending forward and bending over. Symptoms are aggravated by bending and changing positions. Symptoms are relieved by over the counter medication: acetaminophen. Additional information: Pt states that on that the pain was an 11 on a scale of 1-10. When she bends forward she feels like she is not going to be able to stand back up. At times, Tylenol helps to relieve the pain. ER Followup Edenilson is here today for an ER follow up. Pt was seen at [facility] on 24, dx, Strep, and Cystitis. She was treated with 1 gram of Rocephin. She also had a ct of abd, Impression: Urinary Bladder wall thickening, correlate w/ urinalysis for cystitis. Today she reports she continues to have non-productive cough, mild pain w/ urination. She also is taking augmenten that she finished Sunday. UA ok here in office today. B12 EDENILSON IS HERE THIS MORNING TO RECEIVE B12 INJECTION #6 OF 6. ADMINISTERED INTO LEFT DELTOID. PT TOLERATED WELL, BAND AID APPLIED. PT TO NOW MOVE TO MONTHLY B12 INJECTIONS. PT IS SCHEDULED TO RTC IN 1 MONTH. B12 injection #5 of 6. Pt voiced no complaints. injection Patient here for #4 B12 Injection, voices no complaintsNon 340 B Cyanocobalamin 1000 mg given f/u medications/anxiety AnxietyJ ust started the escitalopram and has been taking for about 4 weeks now.anxiety is better-she feels more calm, no more chest heaviness/palpitionsShe reports having more energystill adjusting to medication and recovering from her complete hysterectomy that she had on the of this month.Procedure went well, no complications- d/c on 24She reports she is doing so much better, still mild abdominal tenderness and mild swelling.[place] began to have estrogen injections monthlyRTC 1 week B12 # 4 of 6Repeat TSH at week # 6f/u here on week 7 for anxiety/ TSH results B12 injection Edenilson is here this morning for B12 injection #2 of 6. Administered into left deltoid. Pt tolerated well, band aid applied. f/u labs F/u labs:A1c 5.5 , CBC, CMP, Insulin okneg hivTotal Cholesterol 215, HDL 41, Trigs 142, LDL 147- diet modifications recommended- low fat, less fried- greasy foodsFerritin 32, TIBC, Total iron wnl, Saturation slightly low 13%Vit D low at 7- sending supplement weekly x 12B12 low 334- may start 6 week series of injections, then monthlyShe was also seen in the ER over the weekend for congestionshwendy was given anbx this past Sunday- but stopped taking them, because she felt betterlosing voice, itchy throat, thibodeaux, coughencouraged to keep taking anbx until completeAnxietyJust started the escitalopram on feeling doroteo will continue to take and f/u 2 weeksanxiety is some betterstill adjusting to medicationSHe is due t to have total hysterectomy on the of this monthperiodpoornima ospina sat slightly low Pre Op Physical Edenilson is here today as a new pateint to establish care and for a pre op physical for a hysterectomy. Her previous PCP was Dr. Olivier Fowler in [place]. She is a patient of Dr. Bryant at [facility]. Last November Dr Bryant performed a tubal and a uterine ablation on the pt to help with her heavy, painful periods. The periods stopped for approximately 5 months. They are now back and lasting 7 days. They are heavy and painful.She is scheduled for total hysterectomy on March 28.Today she reports a sharp pain, reproducible with palpation on left chest area.Sharp in nature, occurs with inspiration.Denies soa, dizzinessThis pain comes and goes and started a few months ago.Flu vaccine current 01.03.23Denies respiratory illness at this time AnxietyMarielys states that she has contstant worrry and fear. This has been occuring for several years.She reports having an all over pain, pins/needles in angelia feet, swelling in angelia hands, face.She has had complete neg Rheumatology work up at since July of this year. She was found to have Hoshimoto's thyroiditis ( aquired Hypothyroidism)She is currently on Levothryroxine 75 mcg dailyShe has generalized vegue complaints of aches and pains, joint stiffness, swelling of hands/feet and hair loss.THis began before Julyifficulty staying asleepfeels my mind is over thinking Falls asleep for 4 hrs, then wakehas eliminated caffeine from diet except occasionally Instructions Date Instruction Additional Infor sherman Discussed common sig ns and symptoms of Fibromyalgia, including, but not limited to, fatigue, brain fog, joint pain, myalgias. Encouraged heart healthy diet with limited intake of pro-inflammatory foods (processed, greasy, junk). Make sure to get 30 minutes of moderate activity most days of the week. Follow a sleep schedule with goal of going to bed and getting up at the same time every day. Take medications as prescribed for symptom relief. Related to Myalgia Obtain Diagnostic US of rt breast to r/o breast cancer. Related to Contusion of right breast, subsequent encounter rest, ice, compressi on as instructed to reduce post joint injection(s) pain and swelling Related to Pain in right hip Giving encouragement to exercise Related to Body mass index [BMI] 24.0-24.9, adult Lifestyle education regarding di et Related to Body mass index [BMI] 24.0-24.9, adult Patient instructed o n appropriate use of medications prescribed for back pain. Discussed conservative measures such as heat, ice, gentle strength stretching, and core muscle strengthening. Avoid heavy lifting, pulling, or tugging. Contact the clinic if any worsening or new symptoms related to back pain occur. Related to Vertebrogenic low back pain Low fat, low cholest liz diet. Avoid fatty, fried, and greasy foods. Physical activity as tolerated. Counseled on risks of associated comorbidities, such as heart disease and stroke. Encouraged avoidance of tobacco products. Related to Hyperlipidemia Giving encouragement to exercise Related to Body mass index [BMI] 23.0-23.9, adult Lifestyle education regarding di et Related to Body mass index [BMI] 23.0-23.9, adult Patient educated on the importance of maintaining glycemic control. Counseled on diet, exercise and other lifestyle factors that can impact glucose control. Instructed on the importance of taking all medications as prescribed. Patient aware of the importance of diabetic eye exams, dental check ups, foot exams and diabetic foot care. Patient verbalized understanding. Related to Prediabetes Avoid chocolate, caf feine, carbonation, or citrus. Drink plenty of clear fluids. Counseled on appropriate hygiene to reduce risk of future UTI's. Verbalized an understanding of all. Related to Cystitis, unspecified without hematuria May use heat or ice application to affected joints 20-30 minutes, 3-4 x daily. Use whichever gives most comfort.May take OTC tylenol for pain control as per packing instructions.Daily low impact exercise of at least 30 minutes, five days weekly recommended, and gentle stretching of lower back muscles for strength training. Related to Vertebrogenic low back pain B-12 injection given in office today. Eat foods rich in B-12. Additional oral B12 replacement if indicated. Related to Vitamin B12 deficiency Exercise promotion: stretching R elated to Body mass index [BMI] 23.0-23.9, adult Lifestyle education regarding di et Related to Body mass index [BMI] 23.0-23.9, adult B-12 injection given in office today. Eat foods rich in B-12. Additional oral B12 replacement if indicated. Related to Vitamin B12 deficiency Avoid chocolate, caf feine, carbonation, or citrus. Drink plenty of clear fluids. Counseled on appropriate hygiene to reduce risk of future UTI's. Verbalized an understanding of all. Related to Cystitis, unspecified without hematuria Patient educated on the importance of maintaining glycemic control. Counseled on diet, exercise and other lifestyle factors that can impact glucose control. Instructed on the importance of taking all medications as prescribed. Patient aware of the importance of diabetic eye exams, dental check ups, foot exams and diabetic foot care. Patient verbalized understanding. Related to Prediabetes Giving encouragement to exercise Related to Body mass index [BMI] 22.0-22.9, adult Lifestyle education regarding di et Related to Body mass index [BMI] 22.0-22.9, adult B-12 injection given in office today. Eat foods rich in B-12. Additional oral B12 replacement if indicated. Related to Vitamin B12 deficiency Patient counseled on doing warm salt water gargles, completing any and all medications prescribed, may use OTC analgesics as needed. Related to Acute laryngitis Drink plenty of flui ds. Use nasal saline rinses. Nasal steroid spray if tolerated. Antihistamines as needed. Avoid allergy triggers when possible. Related to Other seasonal allergic rhinitis Giving encouragement to exercise Related to Body mass index [BMI] 25.0-25.9, adult Lifestyle education regarding di et Related to Body mass index [BMI] 25.0-25.9, adult 15 minutes of sun ex posure daily to naturally raise vitamin D levels Related to Vitamin D deficiency Low fat, low cholest liz diet. Avoid fatty, fried, and greasy foods. Physical activity as tolerated. Counseled on risks of associated comorbidities, such as heart disease and stroke. Encouraged avoidance of tobacco products. Related to Hyperlipidemia B-12 injection given in office today. Eat foods rich in B-12. Additional oral B12 replacement if indicated. Related to Vitamin B12 deficiency Patient educated on the importance of maintaining glycemic control. Counseled on diet, exercise and other lifestyle factors that can impact glucose control. Patient aware of the importance of diabetic eye exams, dental check ups, foot exams and diabetic foot care. Patient verbalized understanding. Related to Prediabetes Lifestyle education regarding di et Related to Body mass index [BMI] 26.0-26.9, adult Giving encouragement to exercise Related to Body mass index [BMI] 26.0-26.9, adult Patient instructed o n appropriate use of medications prescribed for back pain. Discussed conservative measures such as heat, ice, gentle strength stretching, and core muscle strengthening. Avoid heavy lifting, pulling, or tugging. Contact the clinic if any worsening or new symptoms related to back pain occur. Related to Vertebrogenic low back pain Physical activity as tolerated. Try to engage in some form of moderate physical activity for 30 minutes most days of the week. May modify activity as needed to reduce discomfort. Try to achieve/maintain a healthy body weight to reduce strain on musculoskeletal system. Verbalizes an understanding. Related to Body mass index [BMI] 25.0-25.9, adult Avoid chocolate, caf feine, carbonation, or citrus. Drink plenty of clear fluids. Counseled on appropriate hygiene to reduce risk of future UTI's. Verbalized an understanding of all. Related to Cystitis, unspecified without hematuria Giving encouragement to exercise Related to Body mass index [BMI] 25.0-25.9, adult Lifestyle education regarding di et Related to Body mass index [BMI] 25.0-25.9, adult Physical activity as tolerated. Try to engage in some form of moderate physical activity for 30 minutes most days of the week. May modify activity as needed to reduce discomfort. Try to achieve/maintain a healthy body weight to reduce strain on musculoskeletal system. Verbalizes an understanding. Related to Body mass index [BMI] 25.0-25.9, adult B-12 injection given in office today. Eat foods rich in B-12. Additional oral B12 replacement if indicated. Related to Vitamin B12 deficiency Discussed stress red uction techniques. Take medications as prescribed. Limit caffeine and nicotine. Try to follow a set sleep schedule. Get daily moderate exercise if able to tolerate.Continue escitalopram dailyRTC 1 month f/u on TSH repeat labs and medsRTC 1 week B12 # 4 of 6 Related to Anxiety Giving encouragement to exercise Related to Body mass index [BMI] 25.0-25.9, adult Lifestyle education regarding di et Related to Body mass index [BMI] 25.0-25.9, adult Discussed common sig ns and symptoms of Fibromyalgia, including, but not limited to, fatigue, brain fog, joint pain, myalgias. Encouraged heart healthy diet with limited intake of pro-inflammatory foods (processed, greasy, junk). Make sure to get 30 minutes of moderate activity most days of the week. Follow a sleep schedule with goal of going to bed and getting up at the same time every day. Take medications as prescribed for symptom relief. Related to Myalgia Continue anbx from t he ER you satrted on Sunday Take all antibiotics until complete. May take with food to ease stomach irritation. If you experience frequent yeast infections, you may consider taking an OTC probiotic like culturell or align while taking antibiotics, or eating yogurt (daily) with active cultures. Related to Upper respiratory infection NOS 15 minutes of sun ex posure daily to naturally raise vitamin D levels Related to Vitamin D deficiency Discussed stress red uction techniques. Take medications as prescribed. Limit caffeine and nicotine. Try to follow a set sleep schedule. Get daily moderate exercise if able to tolerate. Related to Anxiety B-12 injection given in office today. Eat foods rich in B-12. Additional oral B12 replacement if indicated. Related to Vitamin B12 deficiency Giving encouragement to exercise Related to Body mass index [BMI] 25.0-25.9, adult Lifestyle education regarding di et Related to Body mass index [BMI] 25.0-25.9, adult rest, ice, compressi on as instructed to reduce joint pain and swelling Related to Painful respiration Discussed common sig ns and symptoms of Fibromyalgia, including, but not limited to, fatigue, brain fog, joint pain, myalgias. Encouraged heart healthy diet with limited intake of pro-inflammatory foods (processed, greasy, junk). Make sure to get 30 minutes of moderate activity most days of the week. Follow a sleep schedule with goal of going to bed and getting up at the same time every day. Take medications as prescribed for symptom relief. Related to Myalgia Discussed stress red uction techniques. Take medications as prescribed. Limit caffeine and nicotine. Try to follow a set sleep schedule. Get daily moderate exercise if able to tolerate.Start taking 1/2 tablet of escitalopram 20 mg daily x 2 weeks, then increase to whole tablet daily.Take your depression/anxiety medications as instructed. Do not stop them abruptly. Monitor your symptoms around the 2nd week of medication. If you have suicidal or homicidal ideation, and feel you might act on them, go to the ER. Call me if this occurs. Related to Anxiety Counseled on importa nce of sleep hygiene. Maintain a consistent sleep schedule. Avoid caffeine for at least 6 hours prior to bed. Limit screen time (TV, phone, video games) before bed. Make sure bedroom is cool and dark, which improves sleep quality. If taking medications to help with insomnia, try to take at least 30 minutes before goal bed time. Do not smoke or drink alcohol just before bedtime. Got to bed and get up at the same time daily. Related to Sleep disorder, unspecified Physical activity as tolerated. Try to engage in some form of moderate physical activity for 30 minutes most days of the week. May modify activity as needed to reduce discomfort. Try to achieve/maintain a healthy body weight to reduce strain on musculoskeletal system. Verbalizes an understanding. Related to Body mass index [BMI] 26.0-26.9, adult Giving encouragement to exercise Related to Body mass index [BMI] 26.0-26.9, adult Lifestyle education regarding di et Related to Body mass index [BMI] 26.0-26.9, adult Assessments Type Assessment Date assessment Low income assessment Encounter for screening for depr ession assessment Encounter for screen ing for diseases of the blood and blood-forming organs and certain disorders involving the immune mechanism assessment Lower back pain assessment Anxiety assessment Myalgia assessment Pain in right hip assessment Contusion of right breast, subse quent encounter assessment Body mass index [BMI] 24.0-24.9, adult Mental Status Date Cognitive Assessment Orientation - [place] ed to time, place, person, situation.
--- NOTE | 2025-03-02 08:00 | US_ITS ---
PROCEDURE INFORMATION: Exam: US Right Breast, Complete Exam date and time: 03/02/2025 8:00 AM Age: 39 years old Clinical indication: Breast pain; Right; Additional info: Right breast pain TECHNIQUE: Imaging protocol: Complete ultrasound of all four quadrants of the right breast and the retroareolar regions, including ultrasound of the axilla when performed. COMPARISON: No relevant prior studies available. FINDINGS: ULTRASOUND: Breast ultrasound findings: Sonographic images of the right breast including the retroareolar region, all 4 quadrants and the axilla do not demonstrate any solid or cystic masses. This is with particular attention to the 3 o'clock axis where the patient reports focal pain. Inframammary lymph node incidentally noted in the right 10 o'clock axis 4 cm from the nipple. No architectural distortion or acoustical shadowing. No skin thickening or axillary adenopathy. IMPRESSION: Patient return for diagnostic right mammogram for full evaluation of the patient's complaint of focal right breast pain ASSESSMENT: BI-RADS Category 0: Incomplete- Need Additional Imaging Evaluation
--- OUTSIDE RECORDS SUMMARY | 2025-03-02 08:09 | XMS_ITS | Clinical Summary ---
Author Organization [facility] Address [address] [place] [address] Care Team Providers Care Keyboarding Teacher Name Role Phone Olivier Fowler MD Primary Care Provider [phone] Allergies Active Allergy Reactions Criticality Noted Date Comments Naproxen Itching Medium 07/20/2022 Medications cetirizine (zyrTEC) 10 MG tabletIndicatio ns:Other seasonal allergic rhinitis Take 1 tablet by mouth Daily. 30 tablet 3 3 Active fluticasone (FLONASE) 50 MCG/ACT nasal sprayIndication s:Other seasonal allergic rhinitis 2 sprays into the nostril(s) as directed by provider Daily. 15.8 mL 3 3 Active Finacea 15 % gel APPLY THIN LAYER TOPICALLY TO FACE EVERY DAY 3 Active metroNIDAZOLE (METROGEL) 0.75 % gel APPLY THIN LAYER TOPICALLY TO FACE EVERY DAY 3 Active ondansetron (ZOFRAN) 4 MG tablet Take 1 tablet by mouth Every 6 (Six) Hours. 3 Active sulfamethoxazol e-trimethoprim (BACTRIM DS,SEPTRA DS) 800-160 MG per tablet Take 1 tablet by mouth Every 12 (Twelve) Hours. 3 Active levothyroxine (SYNTHROID, LEVOTHROID) 75 MCG tablet 3 Active Active Problems Problem Noted Date Diagnosed Date Hypokalemia 01/03/2023 Assessment & Plan (01/03/2023 9:23 AM EDT): Modestly low potassium at 3.3 with diarrheal illness coinciding with UTI from 12/21/2022 in the ER where she was given 41 eloquence potassium, and fluids. In context of presenting illness and known history of potassium normal range 4.1 last check 12/26/2021, no need to recheck at this time, although we will check her electrolytes with blood work February 2023 at her follow-up visit with complete physical. Endometriosis 01/03/2023 Assessment & Plan (01/03/2023 9:23 AM EDT): Known longstanding diagnosis for which she follows with gynecology with tentatively scheduled hysterectomy with preservation of ovaries planned for mid March 2022. While she does not specifically would likely need blood work for that procedure from the surgical perspective she would like to have it done before just for cautionary reasons and as such we will set up her follow-up physical in a couple months which will be within the month prior to that visit. Need for vaccination 01/03/2023 Bilateral carpal tunnel syndrome 07/03/2022 Assessment & Plan (07/03/2022 10:53 AM EDT): Positive Phalen's and Tinel sign bilaterally, right greater than left-sided predominant. Waxing and waning pattern but fairly persistent. No issues with strength. Initiate use of wrist braces at nighttime and during the daytime if able. As needed infrequent use of anti-inflammatory could also be pursued. If this is not responsive to treatment, we could consider orthopedic referral. Additional referral for physical therapy to see if there can be some benefit in that regard. Bilateral plantar fasciitis 07/03/2022 Assessment & Plan (07/03/2022 10:53 AM EDT): Chronic pattern and slowly progressing, she is on her feet on hard surfaces for long periods of the day, likely exacerbating. Day is off it does not bother her as much which is typical. Recommend importance of good foot wear, consideration of adding inserts. I discussed [employer] in [place] who can help get a good set of shoes. Heating pad, light stretching, and other measures for treatment of carpal tunnel discussed. Referral for physical therapy to see if this can give further benefit. Advised if not improving, we could consider orthopedic/podiatry referral. Trochanteric bursitis of right hip 07/03/2022 Assessment & Plan (07/03/2022 10:54 AM EDT): Pattern, it sounds like in the past she has had injections from previous physician in [place]. Recommend anti-inflammatory as needed, heating pad. Assess with physical therapy to evaluate and treat, as this can give further benefit. Did orthopedic referral if not seeing any benefit. Advised concerns. Large joint arthralgia of multiple sites 023 Assessment & Plan (07/03/2022 10:51 AM EDT): Patient with some chronic pattern of aches and pains involving specifically the feet, hands, historically the elbow as well as the right hip. I do feel these are most likely not related, but due to the combination I think it is most prudent to assess for possible chronic inflammatory process. As such have ordered rheumatoid factor, LINDSAY and CRP/ESR. Management per results. Right lateral epicondylitis 04/11/2022 Assessment & Plan (04/11/2022 1:29 PM EST): Classic presentation of right lateral epicondylitis, exacerbated initially 3 months ago with 2 weeks where she was lifting and twisting objects regularly. Since that time it has not resolved, but she does continue to use the elbow. I discussed the somewhat stubborn nature of this and recovery, recommend avoidance of aggravating activities, recommend obtaining a elbow brace which will help to minimize pain and also remind her not to use the arm. Initiate prednisone 10 mg tablet 3 tablets daily x5 days followed by naproxen 375 mg twice daily for another 1 to 2 weeks, 30-day supply provided. Icing, versus heat as benefits. I discussed also potential benefit of therapy, she declines for now but will advise if its not seeing notable improvement over the next 1 to 2 weeks. Advised concerns. Acute cystitis with hematuria 04/11/2022 Assessment & Plan (01/03/2023 9:22 AM EDT): Seen in the ER 12/21/2022 with typical UTI/cystitis symptoms with some hematuria pattern but culture contaminated and no growth. She was given Bactrim DS twice daily x5 days and within a few days she did well, and despite being off the medicine now for a week she has had no recurrent symptoms. As such she appears to have cleared this fully. Push fluids, prevention for UTI discussed including caution carbonated beverages, postcoital hygiene, etc. Advise any worsening. Assessment & Plan (04/11/2022 1:30 PM EST): Not a frequent pattern of UTI historically, with typical 3+ leukocyte Estrace on urinalysis. Typical presentation of cystitis with no constitutional decline. Initiate nitrofurantoin/Macrodantin 100 mg twice daily x7 days. Push fluids, consider cranberry juice. Tylenol/Advil as needed. She can also use [id number] Azo for any burning. Expected course of gradual improvement over the next few days. Advised concerns. Routine general medical exam ination at a [facility] facility 12/26/2021 Assessment & Plan (12/26/2021 10:28 AM EDT): Last blood work 12/16/2020, blood work performed today. Normal Pap smear with negative HPV evaluation 07/07/[address] Magallanes at [facility]. Tdap up-to-date, flu vaccine requested, patient declines Acquired hypothyroidism 12/26/2021 Assessment & Plan (01/03/2023 9:22 AM EDT): Associated Sofia's thyroiditis initially. Longstanding pattern is now managed through [facility]. She had been on levothyroxine 100 mcg daily but with a low TSH of 0.2 in August 2022, decrease to 88 mcg dosing, then again in October 2022 TSH still low at 0.09, decrease to 75 mcg dosing. She has follow-up blood work and appoint with [facility] in the next week. She is overall feeling better. Assessment & Plan (12/26/2021 10:28 AM EDT): Longstanding on levothyroxine 88 mcg daily. The patient reports that with blood work through gynecology in August 2021 she thinks her TSH was a little bit low, we will recheck with her screening blood work today a TSH and free T4 with management per results. No change in thyroid type symptoms. Other seasonal allergic rhinitis 12/26/2021 Assessment & Plan (01/03/2023 9:24 AM EDT): Modest increase in symptoms but she has been using her Flonase and Claritin with benefit over the last few weeks, continue on an off use as needed, could consider adding Singulair in future as needed. Additional benefit of saline spray, nasal flushing. Advise concerns. Assessment & Plan (12/26/2021 10:29 AM EDT): Good response to as needed use of Flonase and Claritin. We could add Singulair in the future as necessary. Additional benefit of nasal saline, cool-mist humidifier, nasal flushing. Advise any worsening Pain in right hip 12/26/2021 Assessment & Plan (12/26/2021 10:29 AM EDT): Discussion and diagnosis at evaluation 11/08/2020, most consistent with right sided trochanteric bursitis which does wax and wane periodically but overall is not too invasive in her activities. Advise any worsening, continue anti-inflammatories as needed, heating pad, we could consider therapy in the future, which she declines at this time Mixed hyperlipidemia 12/26/2021 Assessment & Plan (12/26/2021 10:32 AM EDT): Very modest pattern with 12/16/2020 total cholesterol 159, triglycerides 84, HDL 39, LDL 103. Slight decrease in HDL and increased LDL than desired but still overall quite good. Continue healthy diet, exercise. Monitor yearly. Immunizations Immunization Administration Dates Next Due Fluzone (or Fluarix & Flulaval for VFC) >6mos Tdap 02/16/2021 Social History Tobacco Use Types Packs/Day Years Used Date Smoking Tobacco: Never Tobacco Cessation:Counseling Given: Not Answered Alcohol Use Standard Drinks/Week Comments Defer 0 (1 standard drink = 0.6 oz pur e alcohol) PHQ-2 Answer Date Recorded Retired PHQ-9: Brief Depression Severity Measure Score 0 07/03/2022 Abuse Screen Answer Date Recorded Unsafe at Home or Work/School Not on file Feels Threatened by Someone? Not on file 01/2023 Does Anyone Keep You from Co ntacting Others or Doint Things Outside the Home? Not on file 12/27/2022 Physical Sign of Abuse Present Not on file 1 Housing Stability Answer Date Recorded Current Living Arrangements Not on file 12/17 Potentially Unsafe Housing Conditions Not on nemo e 12/27/2022 Family and Community Support Answer Zaheer e Recorded Help with Day-to-Day Activities Not on file 12/27/2022 Lonely or Isolated Not on file 12/27/2022 Employment Answer Date Recorded Do you want help finding or keeping work or a jl b? Not on file 12/27/2022 Disabilities Answer Date Recorded Concentrating, Remembering, or Making Decisions Difficulty Not on file 12/27/2022 Doing Errands Independently Difficulty Not on fi le 12/27/2022 Education Answer Date Recorded Help with school or training? Not on file Preferred Language Not on file 12/27/2022 PHQ-2 Answer Date Recorded Retired PHQ-9: Brief Depression Severity Measure Score 0 07/03/2022 Comments Unknown Sex and Gender Information Value Date Recorded Sex Assigned at Not on file Legal Sex Female 11:52 AM EDT Gender Identity Not on file Sexual Orientation Not on file Last Filed Vital Signs Vital Sign Reading Time Taken Comments Blood Pressure 110/80 01/03/2023 8:45 AM EDT Pulse 72 12/26/2021 8:38 AM EDT Temperature 36.1 C (97 F) 01/03/2023 8:45 AM EDT Respiratory Rate 14 12/26/2021 8:38 AM EDT Oxygen Saturation 99% 12/26/2021 8:38 AM EDT Inhaled Oxygen Concentration - - Weight 71 kg (156 lb 8 oz) 01/03/2023 8:45 AM ED T Height 165.1 cm (5' 5 ) 01/03/2023 8:45 AM EDT Body Mass Index 26.04 01/03/2023 8:45 AM EDT Plan of Treatment Health Maintenance Due Date Last Done Comments Annual Gynecologic Pelvic an d Breast Exam 1986 PAP SMEAR 2007 ANNUAL PHYSICAL 11/23/2021 LIPID PANEL 12/26/2022 12/26/2021 INFLUENZA VACCINE 10/17/2024 01/03/2023 TDAP/TD VACCINES (2 - Td or Tdap) 02/16/2031 02/16/2021 HEPATITIS C SCREENING Completed 07/20/2022 , 12/26/2021 Pneumococcal Vaccine 0-49 Aged Out No longer eligible based on patient's age to complete this topic Procedures Procedure Name Priority Date/Time Associated Diagnosis Comments LIPID PANEL Routine 12/26/2021 9:04 AM EDT Routine general medical examination at a health care facility HEPATITIS C ANTIBODY Routine 12/26/2021 9:04 AM EDT Routine general medical examination at a health care facility from Last 3 Months or Most Recently Relevant to Health Maintenance Results * Hepatitis C Antibody (12/26/2021 9:04 AM EDT) Hep C Virus Ab <0.1 0.0 - 0.9 s/co ratio [facility] Comment: Negative: < 0.8 Indeterminate: 0.8 - 0.9 Positive: > 0.9 HCV antibody alone does not differentiate between previous resolved infection and active infection. The CDC and current clinical guidelines recommend that a positive HCV antibody result be followed up with an HCV RNA test to support the diagnosis of acute HCV infection. [facility] offers Hepatitis C Virus (HCV) RNA, Diagnosis, HEIDI (205083) and Hepatitis C Virus (HCV) Antibody with reflex to Quantitative Real-time PCR (335666). Blood Structure of right upper limb / Unknown 12/26/2021 9:04 AM EDT 12/26/2021 Comment:Blood Release to mikki Elizalde [facility] (AMBULATORY) - 12/27/2021 7:06 AM EDT Performed at: - [address] [id number] Packaging Design Engineer: Talon Bird PhD, Phone: [phone] us Olivier Fowler MD LAB BLOOD ORDERABLES Final Resul t [facility] (AMBULATORY) [address] [place] [address], [place] [phone] [facility] [address] [place] [address], [place] [phone] * (ABNORMAL) Lipid Panel (12/26/2021 9:04 AM EDT) Total Cholesterol 212(H) 100 - 199 mg/dL [facility] Triglycerides 91 0 - 149 mg/dL [facility] HDL Cholesterol 49 >39 mg/dL [facility] VLDL Cholesterol Jm 16 5 - 40 mg/dL [facility] LDL Chol Calc (NIH) 147(H) 0 - 99 mg/dL [facility] Blood Structure of right upper limb / Unknown 12/26/2021 9:04 AM EDT 12/26/2021 Comment:Blood Release to mikki Elizalde [facility] (AMBULATORY) - 12/27/2021 7:06 AM EDT [facility]formed at: - [facility] [address] [place] [id number] Packaging Design Engineer: Talon Bird PhD, Phone: [phone] Olivier Fowler MD LAB BLOOD ORDERABLES Final Resul t [facility] ([facility]) [address] [place] [address], [place] [phone] [facility] [address] [place] [address], [place] [phone] from Last 3 Months or Most Recently Relevant to Health Maintenance Insurance [facility] [employer] [place] Care Teams Keyboarding Teacher Relationship Specialty Start Date End Date Olivier Fowler MD [address] [place] [address] PCP - General Internal Medicine 12/26/21
--- OUTSIDE RECORDS SUMMARY | 2025-03-02 08:09 | XMS_ITS | Encounter Summary ---
Author Organization [facility] Address [address] [place] [address] Care Team Providers Care Imaging Services Director Name Role Phone Duyen Zimmerman APRN Primary Care Provider [phone] Encounter Details Date Type Department Care Team (Late Contact Info) Description 11/20/2024 Results Follow-Up [facility] Endocrinology [address] [place] [address] Janis Caro APRN, GRAPHIC DESIGN SPECIALIST [address] [address] Social History Tobacco Use Types Packs/Day Years Used Date Smoking Tobacco: Never Smokeless Tobacco: Never Alcohol Use Standard Drinks/Week Comments Not Currently 0 (1 standard drink = 0.6 oz pur e alcohol) Occasionally Comments No Sex and Gender Information Value Date Recorded Sex Assigned at Not on file Legal Sex Female 3:14 PM EDT Gender Identity Not on file Sexual Orientation Not on file documented as of this encounter Plan of Treatment Upcoming Encounters Date Type Department Care Team (Late st Contact Info) Description 11/30/2025 9:00 AM EDT [facility] [address] [place] [address] Janis Caro APRN, GRAPHIC DESIGN SPECIALIST [address] [address] documented as of this encounter Visit Diagnoses Not on filedocumented in this encounter Additional Health Concerns Assessment Noted Time A fall risk assessment has been complete d for the patient 07/20/2022 8:55 AM EDT A Body Mass Index follow-up plan has been documented for the patient 11/20/2024 9:45 PM EDT documented as of this encounter Care Teams Imaging Services Director Relationship Specialty Start Date End Date Duyen Zimmerman APRN [address] [place] [address] PCP - General 11/20/24 documented as of this encounter
--- OUTSIDE RECORDS SUMMARY | 2025-03-02 08:09 | XMS_ITS | Clinical Summary ---
Author Organization [facility] [place] [address] Care Team Providers Care Payroll Clerk Name Role Phone Duyen Zimmerman APRN Primary Care Provider [phone] Allergies Active Allergy Reactions Criticality Noted Date Comments Naproxen Itching Medium 07/20/2022 Medications doxycycline (Vibramycin) 50 MG capsule TAKE 1 CAPSULE BY MOUTH DAILY WITH FOOD 3 Active Finacea 15 % gel APPLY THIN LAYER TOPICALLY TO FACE EVERY DAY 3 Active metroNIDAZOLE (Metrogel) 0.75 % gel APPLY THIN LAYER TOPICALLY TO FACE EVERY DAY 3 Active cholecalciferol (Vitamin D-3) 50 MCG (2000 UT) capsule Take 1 capsule (2,000 Units) by mouth 1 (one) time each day. 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 01/21/2025 Results Follow-Up [facility] Endocrinology [address] [place] [address] Janis Caro APRN, CONTENT DEVELOPMENT MANAGER 01/21/2025 Orders Only [facility] Endocrinology [address] [place] [address] Janis Caro APRN, CONTENT DEVELOPMENT MANAGER from Last 3 Months Family History Medical History Relation Name Comments No Known Problems Father Cancer Mother Mikala Valderrama Fibromyalgia Mother Mikala Valderrama Hypertension, benign Mother Mikala Valderrama Uterine cancer Mother Mikala Valderrama Relation Name Status Comments Father Alive Mother Mikala Valderrama Alive Social History Tobacco Use Types Packs/Day Years Used Date Smoking Tobacco: Never Smokeless Tobacco: Never Tobacco Cessation:Counseling Given: Not Answered Alcohol Use Standard Drinks/Week Comments Not Currently 0 (1 standard drink = 0.6 oz pur e alcohol) Occasionally Comments No Sex and Gender Information Value Date Recorded Sex Assigned at Not on file Legal Sex Female 3:14 PM EDT Gender Identity Not on file Sexual Orientation Not on file Last Filed Vital Signs Vital Sign Reading Time Taken Comments Blood Pressure 119/82 11/20/2024 4:17 PM EDT Pulse 64 11/20/2024 4:17 PM EDT Temperature - - Respiratory Rate - - Oxygen Saturation 98% 07/20/2022 8:51 AM EDT Inhaled Oxygen Concentration - - Weight 65.8 kg (145 lb 1 oz) 11/20/2024 4:17 PM EDT Height 165.1 cm (5' 5 ) 11/20/2024 4:17 PM EDT Body Mass Index 24.14 11/20/2024 4:17 PM EDT Plan of Treatment Upcoming Encounters Date Type Department Care Team ([facility] Contact Info) Description 11/30/2025 9:00 AM EDT Office Visit [facility] Endocrinology [address] [place] [address] Janis Caro APRN, CONTENT DEVELOPMENT MANAGER [address] [place] [address] Health Maintenance Due Date Last Done Comments [facility]-Depression Screening 1986 [facility]-HIV Screening 1986 [facility]-/Child/Adol SDOH Screenings 1986 [facility]-Varicella Vaccines (1 of 2 - 13+ 2-dose series) 1999 [facility]- SDOH Screenings 2004 [facility]-Adult SDOH Screenings 2004 [facility]-Hepatitis B Vaccines (1 of 3 - 19+ 3-dose series) 2005 [id number] Vaccine (3 - Pfizer risk series) 08/11/2020 07/14/2020, 06/17/2020 [facility]-Influenza Vaccine (#1) 11/17/202412/10, 01/03/2023 [facility]-DTaP,Tdap,and Td Vaccines (2 - Td or Tdap) 02/16/2031 02/16/2021 [facility]-Zoster Vaccines (1 of 2) 2036 [facility]-Hepatitis C Screening Completed 2022, 12/26/2021 HPV Vaccines (No Doses Required) Completed [facility]-HIB Vaccines Aged Out No longer e ligible based on patient's age to complete this topic [facility]-Hepatitis A Vaccines Aged Out No longer eligible based on patient's age to complete this topic [facility]-IPV Vaccines Aged Out No longer e ligible based on patient's age to complete this topic [facility]-Pneumococcal Vaccine: Pediatrics (0 to 5 Years) and At-Risk Patients (6 to 49 Years) Aged Out No longer eligible b ased on patient's age to complete this topic [facility]-Rotavirus Vaccines Aged Out No lo nger eligible based on patient's age to complete this topic Procedures Procedure Name Priority Date/Time Associated Diagnosis Comments TSH Routine 01/21/2025 9:30 AM EST ACUTE HEPATITIS PANEL Routine 07/20/2022 10:27 AM EDT LINDSAY positive Polyarthralgia from Last 3 Months or Most Recently Relevant to Health Maintenance Results * Thyroid Stimulating Hormone, Plasma (01/21/2025 9:30 AM EST) Blood Venous blood specimen / Unknown Janis Caro APRN, CONTENT DEVELOPMENT MANAGER LAB BLOOD ORDERABLES Final Result * Acute Hepatitis Panel (07/20/2022 10:27 AM EDT) Hepatitis B Surf Antigen Negative Negative 07/20/2022 2:07 PM EDT [facility] Hepatitis C Antibody Negative Negative 07/20/2022 2:07 PM EDT [facility] Hepatitis A Antibody IgM Negative Negative 07/20/2022 2:07 PM EDT [facility] Hepatitis B Core Antibody IgM Negative Negative 07/20/2022 2:07 PM EDT [facility] Blood Venous blood specimen / Unknown Venipuncture / Unknown 07/20/2022 10:27 AM EDT 07/20/2022 10:28 AM EDT Juany Bardales APRN LAB BLOOD ORDERABLES Final Result Performing Organization Address City/State/[facility] Co de Phone Number [facility] [address] [place] [address] from Last 3 Months or Most Recently Relevant to Health Maintenance Insurance MEDICAID Care Teams Payroll Clerk Relationship Specialty Start Date End Date Duyen Zimmerman APRN [address] [place] [address] PCP - General 11/20/24
--- OUTSIDE RECORDS SUMMARY | 2025-03-02 08:09 | XMS_ITS | Encounter Summary ---
Author Organization [facility] Address [address] [place] [address] Care Team Providers Care Tufting Machine Fixer Name Role Phone Duyen Zimmerman APRN Primary Care Provider [phone] Encounter Details Date Type Department Care Team (Late st Contact Info) Description 01/21/2025 Orders [facility] [address] [place] [address] Janis Caro APRN, PACKING MACHINE PILOT CAN ROUTER [address] [address] Social History Tobacco Use Types [...] AM EDT [facility] [address] [place] [address] Janis Caro APRN, PACKING MACHINE PILOT CAN ROUTER [address] [facility] [address] [place] [address] documented as of this encounter Procedures Procedure Name Priority Date/Time Associated Diagnosis Comments TSH Routine 01/21/2025 9:30 AM EST documented in this encounter Results * Thyroid Stimulating Hormone, Plasma (01/21/2025 9:30 AM EST) Blood Venous blood specimen / Unknown us Janis Caro [employer]ACH, PACKING MACHINE PILOT CAN ROUTER LAB BLOOD ORDERABLES Final Result documented in this encounter Visit Diagnoses Not on filedocumented in this encounter Additional Health Concerns Assessment Noted Time A fall risk assessment has been complete d for the patient 07/20/2022 8:55 AM EDT A Body Mass Index follow-up plan has been documented for the patient 11/20/2024 9:45 PM EDT documented as of this encounter Care Teams Tufting Machine Fixer Relationship Specialty Start Date End Date Duyen Zimmerman APRN [address] [place] [address] PCP - General 11/20/24 documented as of this encounter
--- OUTSIDE RECORDS SUMMARY | 2025-03-02 08:09 | XMS_ITS | Encounter Summary ---
Author Organization [facility] Address [address] [place] [address] Care Team Providers Care Interior Wirer Name Role Phone Duyen Zimmerman APRN Primary Care Provider [phone] Encounter Details Date Type Department Care Team (Late st Contact Info) Description 01/21/2025 Results Follow-Up [facility] Endocrinology [address] [place] [address] Janis Caro APRN, CNS [address] [address] Social History Tobacco Use Types [...] on file documented as of this encounter Miscellaneous Notes * Telephone Encounter - Janis Caro APRN, CNS - 01/21/2025 1:40 PM EST Done documented in this encounter Plan of Treatment Upcoming Encounters Date Type Department Care Team (Late st Contact Info) Description 11/30/2025 9:00 AM EDT Office Visit [facility] Endocrinology [address] [place] [address] Janis Caro APRN, CLINICAL TRIALS DATA COORDINATOR [address] [place] [address] documented as of this encounter Visit Diagnoses Not on filedocumented in this encounter Additional Health Concerns Assessment Noted Time A fall risk assessment has been complete d for the patient 07/20/2022 8:55 AM EDT A Body Mass Index follow-up plan has been documented for the patient 11/20/2024 9:45 PM EDT documented as of this encounter Care Teams Interior Wirer Relationship Specialty Start Date End Date Duyen Zimmerman APRN [address] [place], [place] [phone] PCP - General 11/20/24 documented as of this encounter
--- OUTSIDE RECORDS SUMMARY | 2025-03-02 08:09 | XMS_ITS | Encounter Summary ---
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 Social History Tobacco Use Types Packs/Day Years [...] as of this encounter Miscellaneous Notes * Progress Notes - Janis Caro APRN, CNS - 01/21/2025 1:38 PM EST Pharmacy change documented in this encounter Plan of Treatment Upcoming Encounters Date Type Department Care Team (Late Contact Info) Description 11/30/2025 9:00 AM EDT Office Visit [facility] Endocrinology [address] [place] [phone] Janis Caro APRN, PLANNING TECHNICIAN [address] [place] [address] documented as of this encounter Visit Diagnoses Diagnosis 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
== END 2025-03-02 23:59 | disposition home or self-care (01) ==
LOC: RAD 08:04
PROVIDERS: PCP Nurse Practitioner Family; Visit Provider Obstetrics & Gynecology
DX: N64.4 Mastodynia (principal)
CPT/HCPCS: 76641